=== PATIENT | female | born 1950 | race Caucasian/White ===

== ENCOUNTER 2016-07-11 18:57 | Emergency (ER) | payer BC ==
[~2016-07-11] VITALS: Ht 175.3 cm; Wt 91.0 kg
[~2016-07-11 18:57] MED LIST: ATOR-22 PO; ESCI1TAB6 PO; LEVO75TA PO; LORA-741 PO; MECL1TAB42 PO; OMEP20CA9 PO; RIZA1TAB10 PO; TELM40TA PO; ZNTT/150 PO
[2016-07-11 19:04] VITALS: TEMP 36.6; Ht 175.3 cm; Wt 91.0 kg
[2016-07-11] MEDS ORDERED: ROSU10TA24 PO (19:43)
--- NOTE | 2016-07-11 20:03 | EMERGENCY ROOM VISIT NOTE ---
ED Visit Note First contact with patient: 19:11 This Patient was discussed with the physician sales assistants and salespersons, Harpreet Cam PA-C. The pertinent historical and physical exam findings were confirmed. I agree with the studies ordered and with the interpretations of these studies. I agree with the disposition and care plan.
--- NOTE | 2016-07-11 20:19 | EMERGENCY ROOM VISIT NOTE ---
History First contact with patient: 19:11 Chief Complaint: FALL Stated Complaint: FELL,HURT LEG History of Present Illness The patient is a 65 year old female who presents to the Emergency Room via private vehicle accompanied by and daughter with complaints of "fell, her leg". Patient states that earlier today while at her grandson's birthday alliance party, at approximately 5:30 PM she was carrying a 2-year-old child and went to step backwards and believes she tripped over a grandson who would walk behind her and she began to fall backwards twisting her right knee and heard a snap from the knee as she fell to the ground. She points to the right knee as a location of the pain. She rates the knee pain as a 10/10 when trying to walk. The pain is a 0/10 at rest. She denies any prior injuries or knee pains. She denies any loss of consciousness or striking her head. She denies any other injuries from today's fall. Review of Systems A complete 6-point Review of Systems was discussed with the patient, with pertinent positives and negatives listed in the History of Present Illness. All remaining Review of Systems questions can be considered negative unless otherwise specified. Past Medical/Surgical History High blood pressure, stomach problems, hysterectomy 1979. Family History Heart disease, blood pressure. Social History Smoking Status: Former Smoker Alcohol Use: none Drug Use: none Marital Status: Occupation Status: employed Social History: Patient was at home with spouse. She denies alcohol or tobacco use. Current/Historical Medications Scheduled Levothyroxine Sodium (Synthroid), 75 MCG PO DAILY Rosuvastatin Calcium (Rosuvastatin Calcium), 10 MG PO QAM Telmisartan (Micardis), 40 MG PO DAILY Scheduled PRN Lorazepam (Ativan), 0.5-1 MG PO Q6H PRN for Anxiety Meclizine Hcl (Meclizine Hcl), 25 MG PO TID PRN for Dizziness or Vertigo Omeprazole (Prilosec), 20-40 MG PO DAILY PRN for Dyspepsia Oxycodone Immediate Rel Tab (Roxicodone Ir), 1-2 TAB PO Q4H PRN for Severe Pain Allergies Coded Allergies: Acetaminophen (Verified Allergy, Mild, Rash, 07/11/16) Hydrocodone (Verified Allergy, Mild, Rash, 07/11/16) Physical Exam Vital Signs Date Time Temp Pulse Resp B/P Pulse Ox O2 Delivery O2 Flow Rate FiO2 07/11/16 22:25 88 18 143/91 97 07/11/16 19:04 36.6 95 18 171/95 98 Room Air Physical Exam VITAL SIGNS - Vital signs and nursing notes were reviewed. Patient is afebrile , slightly hypertensive at 171/95, non-tachycardic, and is saturating well on room air 98%. GENERAL -65-year-old female stated age and in noticeable discomfort throughout the exam. MUSCULOSKELETAL -right knee with erythema, edema, and no ecchymosis. Exquisite tenderness to palpation appreciated over the posterior aspect of the right knee. Decreased strength appreciated right knee secondary to patient discomfort. No posterior sag sign. RANGE OF MOTION: Limited Flexion with limited Extension. Suspected anterior cruciate ligament tear secondary to location of tenderness. VARUS/VALGUS STRESS: No laxity noted.. NEUROLOGIC/VASCULAR - Neurovascularly intact distally with +3/5 dorsalis pedis pulses palpated bilaterally. Normal sensation to light and sharp touch appreciated distally. No neurovascular deficits. Medical Decision & Procedures ER Provider Diagnostic Interpretation: RIGHT KNEE 3 VIEWS HISTORY: Right knee pain s/p fall Right COMPARISON: None. FINDINGS: There is no fracture or dislocation. Mild tricompartmental osteoarthritis. There is a moderate lipohemarthrosis. IMPRESSION: Moderate joint effusion which appears to represent a lipohemarthrosis. No fractures identified. However, a lipohemarthrosis favors an occult fracture. Recommend dedicated CT of the right knee for further evaluation. Electronically signed by: Afshin Hummel M.D. 07/11/2016 8:18 PM Dictated Date/Time: 07/11/2016 8:[address] DOSE: 2039.00 mGy.cm HISTORY: Right knee injury. R/o occult fx. Right TECHNIQUE: Multiaxial CT images of the right knee were performed and reformatted in the sagittal and coronal plane without the use of contrast. COMPARISON: Right knee 07/11/2016. FINDINGS: There is again noted a moderate lipohemarthrosis. Mild cartilage space narrowing within the medial compartment of the knee. There is a fracture through the posterior aspect of the lateral tibial plateau. This demonstrates up to 1 mm of depression. There is a small slightly displaced fracture at the posterior lip. The total depressed fracture area measures 2.5 x 1.3 cm. There is suggestion of soft tissue edema at the ACL with a small bony fragment near the femoral attachment. This may represent an ACL tear. The distal femur, patella, and fibula are intact. Small popliteal cyst. IMPRESSION: 1. Lateral tibial plateau fracture as described up which demonstrates up to 1 mm of depression. 2. Moderate lipohemarthrosis. 3. Suspect an ACL injury/tear. Follow-up outpatient MRI can be performed for confirmation. Electronically signed by: Afshin Hummel M.D. 07/11/2016 9:09 PM Dictated Date/Time: 07/11/2016 9:03 PM Medications Administered Medications (Trade) Dose Ordered Sig/Arelis Route Start Time Stop Time Status Last Admin Dose Admin Oxycodone HCl (Roxicodone Immediate Rel 5MG Home Pack) 1 homepack UD STAT PO 07/11/16 22:11 07/11/16 22:12 DC 07/11/16 22:17 1 HOMEPACK Medical Decision Patient was seen and evaluated as above. After obtaining a thorough history and physical examination radiographs of the right knee were obtained secondary to subjective and objective examination findings. There was concern for fracture of the knee. Results of the radial graph as above. I agree with radiologist findings. Due to the questionable occult fracture dedicated CT was obtained. Patient did not want anything for pain. She was given ice pack. CT did reveal a tibial plateau fracture with potential anterior cruciate ligament tear. I did discuss the case with my attending as well as called the on-call orthopedic surgeon at 9:43 PM. I spoke with Dr. Neal, and discussed the case. It was decided patient could be fitted with a knee immobilizer, made nonweightbearing and follow up with his office in the outpatient setting. Patient was fitted with a knee immobilizer and crutches. She seemed happy with this. She was given a home pack for OxyIR 5 mg tablets as well as a prescription for her pharmacy which was written by my attending after verifying no red flag [place] drug monitoring system. The patient noted that she did have hydrocodone allergy therefore this was a voided and I did caution her that oxycodone may cause a reaction as well. She indicated she had never taken this before, however she was open to trying and notes that if she develops a rash she will stop it and should not be a problem. She was given the number for the orthopedic surgeon. She was repeatedly instructed to remain nonweightbearing. She was educated on worrisome symptoms in which to return. She had questions answered prior to discharge and was discharged home in good condition with her father and daughter. In the evaluation and treatment of this patient, the following differential diagnoses were considered: Patellar Fracture, Tibial Plateau Fracture, Distal Femur Fracture, ACL Injury, PCL Injury, Collateral Ligament Injury, Pes Anserine Bursitis, Maisonneuve Fracture. Impression Primary Impression: Fall Additional Impressions: Right knee pain, Tibial plateau fracture, right, Injury of anterior cruciate ligament, acute Departure Information Dispostion Home / Self-Care Condition GOOD Prescriptions Oxycodone Immediate Rel Tab (ROXICODONE IR) 5 Mg Tab 1-2 TAB PO Q4H Y for Severe Pain, #24 TAB Prov: Reuben Miguel, 07/11/16 Referrals Steven Monroe M.D. (PCP) Steven Neal M.D. Patient Instructions A Signature Page, My [facility] Additional Instructions You have been treated in the Emergency Department for Knee Pain. You have been prescribed Oxy IR to be used for pain control. This is a narcotic medication. You cannot drive or consume alcohol while on this medicine. This medicine should only be used for pain that cannot be controlled with over-the- counter pain medicines. As we discussed you're never had this pain medication before and it is recommended that if you develop any reaction such as hives or difficulty breathing that you return to the emergency department immediately after cessation of the medication. Please consider taking an cfhz-cme-jfafite stool softener with this to help prevent constipation. For pain control, you can use the following tqfj-yxy-gszhkoa medicines (if >12 yo): - Regular strength (325mg/tab) Tylenol (acetaminophen) 2 tabs every 4-6 hours as needed. Do not exceed 12 tablets in a 24 hour period. Avoid taking more than 4 grams (4000 mg) of Tylenol per day. This includes any other sources of acetaminophen you may take on a regular basis. - Regular strength (200 mg/tab) Advil (ibuprofen) 1-2 tabs every 4-6 hours as needed. Do not exceed a dose of 3200 mg per day. If this is a recent injury (<24 hrs), ice can be applied to the area of pain for the first 3 days to help decrease pain and inflammation. Ice massages can be performed by freezing water in a paper cup, peeling back the cup to expose the ice and then massaging over the affected area. You have been provided the number for an Orthopaedic Surgeon. You should call this number as soon as possible to establish a follow-up visit from today's Emergency Department visit. Keep the knee brace in place until cleared by Orthopedics. Use the crutches you have been provided to keep ALL weight off of the knee until seen and evaluated by orthopedics. Return to the Emergency Department if your current symptoms worsen despite treatment course outlined above. Please return to the emergency department with any new/concerning symptoms.
--- NOTE | 2016-07-11 21:11 | DIAGNOSTIC IMAGING REPORT ---
RIGHT KNEE CT CT DOSE: 2039.00 mGy.cm HISTORY: Right knee injury. R/o occult fx. Right TECHNIQUE: Multiaxial CT images of the right knee were performed and reformatted in the sagittal and coronal plane without the use of contrast. COMPARISON: Right knee 07/11/2016. FINDINGS: There is again noted a moderate lipohemarthrosis. Mild cartilage space narrowing within the medial compartment of the knee. There is a fracture through the posterior aspect of the lateral tibial plateau. This demonstrates up to 1 mm of depression. There is a small slightly displaced fracture at the posterior lip. The total depressed fracture area measures 2.5 x 1.3 cm. There is suggestion of soft tissue edema at the ACL with a small bony fragment near the femoral attachment. This may represent an ACL tear. The distal femur, patella, and fibula are intact. Small popliteal cyst. IMPRESSION: 1. Lateral tibial plateau fracture as described up which demonstrates up to 1 mm of depression. 2. Moderate lipohemarthrosis. 3. Suspect an ACL injury/tear. Follow-up outpatient MRI can be performed for confirmation. Electronically signed by: Afshin Hummel M.D. 07/11/2016 9:09 PM Dictated Date/Time: 07/11/2016 9:03 PM
[2016-07-11] MEDS ORDERED: OXYC1TAB3 PO (21:32)
[2016-07-11] MEDS ORDERED: OXYCODONE IR HOME PACK PO STA (22:11)
[2016-07-11 22:25] VITALS: BP 143/91; PULSE 88; O2SAT 97
== END 2016-07-11 22:26 | disposition home or self-care (01) ==
LOC: C.EDB 18:58 → C.EDD 22:26
DX: S82.141A Displaced bicondylar fracture of right tibia, initial encounter for closed fracture (principal); S89.81XA Other specified injuries of right lower leg, initial encounter; W03.XXXA Other fall on same level due to collision with another person, initial encounter; Y93.01 Activity, walking, marching and hiking; Y99.8 Other external cause status; Y92.89 Other specified places as the place of occurrence of the external cause; Z87.891 Personal history of nicotine dependence

== ENCOUNTER → 2016-10-21 | Outpatient (CLI) | payer BC ==
[~2016-10-21] MED LIST changes: -ATOR-22 PO; -ESCI1TAB6 PO; +OXYC1TAB3 PO; -RIZA1TAB10 PO; +ROSU10TA24 PO; -ZNTT/150 PO
--- NOTE | 2016-10-21 15:28 | DIAGNOSTIC IMAGING REPORT ---
ULTRASOUND RIGHT LOWER EXTREMITY VENOUS CLINICAL HISTORY: Right leg swelling. COMPARISON STUDY: No priors. TECHNIQUE: Real-time, grayscale, and color Doppler sonography of the deep veins of the right lower extremity was performed from the inguinal crease to the calf. Compression and augmentation were utilized. FINDINGS: There is deep venous thrombosis identified in the calf within the peroneal veins. The remaining calf vessels are clear. There is no sonographic evidence of above knee deep venous thrombosis identified in the right lower extremity. The common femoral, superficial femoral, and popliteal veins are patent and normally compressible. The greater saphenous vein and the profunda femoris vein at the junction with the common femoral vein are clear. A small popliteal cyst measures 2.8 x 1.0 x 1.4 cm. IMPRESSION: 1. Deep venous thrombosis is identified in the right calf within the peroneal veins. 2. No above knee deep venous thrombosis is identified in the right lower extremity. 3. Popliteal cyst. Electronically signed by: Jayson Nj M.D. 10/21/2016 3:27 PM Dictated Date/Time: 10/21/2016 3:25 PM
== END | disposition home or self-care (01) ==
LOC: C.ULTRBC 14:49
PROVIDERS: ATTEND Physician Assistant Medical
DX: R60.0 Localized edema (principal); I82.491 Acute embolism and thrombosis of other specified deep vein of right lower extremity

== ENCOUNTER → 2016-11-19 | Outpatient (CLI) | payer BC ==
--- NOTE | 2016-11-19 14:18 | DIAGNOSTIC IMAGING REPORT ---
RIGHT LOWER EXTREMITY VENOUS DOPPLER HISTORY: I82.409 DVT (deep venous thrombosis)M25.569 Knee painR60.0 Leg e Right COMPARISON STUDY: Right leg venous Doppler 10/21/2016. FINDINGS: There is deep venous thrombosis identified in the calf within the peroneal veins, unchanged. The remaining calf vessels are clear. There is no sonographic evidence of above knee deep venous thrombosis identified in the right lower extremity. The common femoral, superficial femoral, and popliteal veins are patent and normally compressible. The greater saphenous vein is patent. A small popliteal cyst. IMPRESSION: 1. No change in the deep venous thrombosis is identified in the right calf within the peroneal veins. 2. No above knee deep venous thrombosis is identified in the right lower extremity. 3. Popliteal cyst. Electronically signed by: Afshin Hummel M.D. 11/19/2016 2:16 PM Dictated Date/Time: 11/19/2016 2:14 PM
--- NOTE | 2016-11-19 14:22 | DIAGNOSTIC IMAGING REPORT ---
RIGHT KNEE 2 VIEWS HISTORY: I82.409 DVT (deep venous thrombosis)M25.569 Knee painR60.0 Leg e Right COMPARISON: Right knee 07/11/2016. FINDINGS: There is an old small nonunited fracture within the posterior lip of the lateral tibial plateau. No significant displacement. No acute fractures identified within the right knee. No dislocation. No significant knee effusion. Soft tissues are unremarkable. No radiopaque foreign bodies. IMPRESSION: There is an old small nonunited fracture within the posterior lip of the lateral tibial plateau. No acute fractures. No effusion. Electronically signed by: Afshin Hummel M.D. 11/19/2016 2:21 PM Dictated Date/Time: 11/19/2016 2:17 PM
== END | disposition home or self-care (01) ==
LOC: C.ULTRBC 13:29
PROVIDERS: ATTEND Physician Assistant Medical
DX: I82.409 Acute embolism and thrombosis of unspecified deep veins of unspecified lower extremity (principal); M25.561 Pain in right knee; R60.0 Localized edema

== ENCOUNTER → 2016-12-22 | Outpatient (CLI) | payer BC ==
--- NOTE | 2016-12-22 08:06 | DIAGNOSTIC IMAGING REPORT ---
BILATERAL LOWER EXTREMITY VENOUS DOPPLER HISTORY: Pain. Edema. HX DVT; EDEMA COMPARISON STUDY: 11/19/2016 FINDINGS: Chronic thrombophlebitis of the right catheter. This involves one of the 2. Peroneal veins. Flow is perhaps slightly improved. There is no evidence for progressive disease. All remaining venous structures the right leg as well as the entirety of the left leg are unremarkable. IMPRESSION: Chronic thrombophlebitis right lower leg moderately improved from the prior exam. No new or interval process. Electronically signed by: Jorge Alberto Singh M.D. 12/22/2016 8:04 AM Dictated Date/Time: 12/22/2016 8:02 AM
== END | disposition home or self-care (01) ==
LOC: C.ULTRBC 07:20
PROVIDERS: ATTEND Internal Medicine
DX: I82.409 Acute embolism and thrombosis of unspecified deep veins of unspecified lower extremity (principal); R60.0 Localized edema

== ENCOUNTER → 2016-12-24 | Outpatient (CLI) | payer BC ==
--- NOTE | 2016-12-25 08:00 | MAMMOGRAPHY REPORT ---
BILATERAL DIGITAL SCREENING MAMMOGRAM WITH CAD: 12/24/2016 CLINICAL HISTORY: Routine screening. Patient has no complaints. TECHNIQUE: Current study was also evaluated with a Computer Aided Detection (CAD) system. Bilateral CC and MLO views were obtained. COMPARISON: Comparison is made to exams dated: 11/19/2015 mammogram, 07/04/2015 ultrasound, 5 mammogram, 10/18/2014 mammogram, 02/02/2013 mammogram, and 02/02/2013 ultrasound - [facility]. BREAST COMPOSITION: There are scattered areas of fibroglandular density in both breasts. FINDINGS: No suspicious masses, calcifications, or areas of architectural distortion are noted in ei ther breast. There has been no significant interval change compared to prior exams. Linear scar rancho ers denote scars on the right anterior breast. Small circumscribed benign-appearing mass within the right breast at approximately 12:00 is stable. IMPRESSION: ACR BI-RADS CATEGORY 2: BENIGN There is no mammographic evidence of malignancy. A 1 year screening mammogram is recommended. The pa tient will receive written notification of the results. Approximately 10% of breast cancers are not detected with mammography. A negative mammographic report should not delay biopsy if a clinically suggestive mass is present. Isabel Valadez M.D. ah/:12/24/2016 15:50:17 Dag Coater: Margaret TROTTERR, M, [facility] letter sent: Normal 1/2 BI-RADS Code: ACR BI-RADS Category 2: Benign
== END | disposition home or self-care (01) ==
LOC: C.MAMM 14:21
PROVIDERS: ATTEND Obstetrics & Gynecology
DX: Z12.31 Encounter for screening mammogram for malignant neoplasm of breast (principal)

== ENCOUNTER → 2017-01-11 | Outpatient (CLI) | payer BC ==
--- NOTE | 2017-01-11 14:56 | DIAGNOSTIC IMAGING REPORT ---
RIGHT LOWER EXTREMITY VENOUS DOPPLER CLINICAL HISTORY: Deep venous thrombus. COMPARISON STUDY: Right lower extremity venous Doppler Nov 19 2016. TECHNIQUE: Sonography of the deep venous system of the right lower extremity was performed. Compression and augmentation were evaluated. FINDINGS: The common femoral, superficial femoral and popliteal veins were compressible. Augmentation was normal. There is minimal wall thickening of the right peroneal vein which suggests chronic thrombus. The amount of thrombus has diminished since exam of November 19, 2016. There is a small right popliteal cyst. IMPRESSION: 1. No evidence of acute deep venous thrombus within the right lower extremity. 2. Minimal chronic thrombus within the right peroneal vein which has improved since exam of November 19, 2016. Electronically signed by: Brian Barton M.D. 01/11/2017 2:54 PM Dictated Date/Time: 01/11/2017 2:53 PM
== END | disposition home or self-care (01) ==
LOC: C.ULTRBC 14:12
PROVIDERS: ATTEND Internal Medicine
DX: I82.591 Chronic embolism and thrombosis of other specified deep vein of right lower extremity (principal)

== ENCOUNTER → 2017-02-04 | Outpatient (CLI) | payer BC ==
[~2017-02-04] MED LIST changes: -OXYC1TAB3 PO
--- NOTE | 2017-02-04 12:17 | DIAGNOSTIC IMAGING REPORT ---
ULTRASOUND RIGHT LOWER EXTREMITY VENOUS CLINICAL HISTORY: Follow-up deep venous thrombosis. COMPARISON STUDY: Right lower extremity venous ultrasound dated 01/11/2017. TECHNIQUE: Real-time, grayscale, and color Doppler sonography of the deep veins of the right lower extremity was performed from the inguinal crease to the calf. Compression and augmentation were utilized. FINDINGS: There is age indeterminant and likely chronic deep venous thrombosis identified in the calf within the peroneal veins. The remaining calf vessels are clear. There is no sonographic evidence of above knee deep venous thrombosis identified in the right lower extremity. The common femoral, superficial femoral, and popliteal veins are patent and normally compressible. The greater saphenous vein and the profunda femoris vein at the junction with the common femoral vein are clear. IMPRESSION: 1. Presumably chronic deep venous thrombosis is again seen in the right calf within the peroneal veins. This is similar to the 01/11/2017 examination. 2. No above knee deep venous thrombosis is identified in the right lower extremity. Electronically signed by: Jayson Nj M.D. 02/04/2017 12:16 PM Dictated Date/Time: 02/04/2017 12:14 PM
== END | disposition home or self-care (01) ==
LOC: C.ULTRBC 10:57
PROVIDERS: ATTEND Internal Medicine
DX: I82.409 Acute embolism and thrombosis of unspecified deep veins of unspecified lower extremity (principal)

== ENCOUNTER → 2017-02-18 | Outpatient (CLI) | payer BC ==
--- NOTE | 2017-02-18 11:05 | DIAGNOSTIC IMAGING REPORT ---
RIGHT LOWER EXTREMITY VENOUS DOPPLER HISTORY: I82.409 DVT (deep venous thrombosis) COMPARISON STUDY: Right leg venous Doppler 02/04/2017. FINDINGS: No change in the thrombosed right peroneal veins. Therefore, this is considered to be chronic. The right common femoral, superficial femoral, popliteal, anterior tibial, posterior tibial veins appear patent. IMPRESSION: No acute DVT within the right lower extremity. No change in the presumed chronic thrombus within the right peroneal veins. Electronically signed by: Afshin Hummel M.D. 02/18/2017 11:04 AM Dictated Date/Time: 02/18/2017 11:02 AM
== END | disposition home or self-care (01) ==
LOC: C.ULTRBC 10:22
PROVIDERS: ATTEND Internal Medicine
DX: I82.409 Acute embolism and thrombosis of unspecified deep veins of unspecified lower extremity (principal); R60.0 Localized edema

== ENCOUNTER → 2017-06-15 | Outpatient (CLI) | payer BC ==
--- NOTE | 2017-06-15 15:14 | DIAGNOSTIC IMAGING REPORT ---
R VENOUS DOPP LOWER EXT UNILAT HISTORY: 66 years-old Female RT LEG PAIN acute right leg pain COMPARISON: Duplex venous Doppler study 02/18/2017, 02/04/2017 TECHNIQUE: Multiple real-time sonographic images of the right lower extremity deep venous structures were obtained assessing grayscale appearance, color and spectral flow FINDINGS: No change in the chronic thrombosed right peroneal veins. The right common femoral, superficial femoral, profunda femoris, popliteal, posterior tibial, and anterior tibial appear patent. IMPRESSION: 1. No acute deep venous thrombosis of the right lower extremity. 2. Unchanged appearance of the chronic thrombosed right peroneal veins. The above report was generated using voice recognition software. It may contain grammatical, syntax or spelling errors. Electronically signed by: Brent Mosher M.D. 06/15/2017 3:12 PM Dictated Date/Time: 06/15/2017 3:10 PM
== END | disposition home or self-care (01) ==
LOC: C.ULTRBC 14:32
PROVIDERS: ATTEND Internal Medicine
DX: M54.16 Radiculopathy, lumbar region (principal); M79.604 Pain in right leg; M79.671 Pain in right foot; I82.811 Embolism and thrombosis of superficial veins of right lower extremity

== ENCOUNTER → 2017-07-22 | Outpatient (CLI) | payer BC ==
[~2017-07-22] MED LIST changes: -ROSU10TA24 PO; +ROSU10TA35 PO
[2017-07-22 16:49] LABS: BASO % 0.8 %; BASO ABS # 0.05 K/uL (0-0.2); EOS % 1.5 %; HEMATOCRIT 44.7 % (37-47); IG# 0.01 K/uL (0.00-0.02); LYMPH % 33.9 %; LYMPH ABS # 2.21 K/uL (1.2-3.4); MEAN CELL VOLUME 87.3 fL (80-100); MEAN CORPUSCULAR HEMOGLOBIN 29.3 pg (25-34); MEAN CORPUSCULAR HGB CONC 33.6 g/dl (32-36); MEAN PLATELET VOLUME 12.1 fL (7.4-10.4); MONO % 10.4 %; MONO ABS # 0.68 K/uL (0.11-0.59); NEUT % 53.2 %; NEUT ABS # 3.46 K/uL (1.4-6.5); PLATELET COUNT 276 K/uL (130-400); RED CELL DISTRIBUTION WIDTH CV 13.3 % (11.5-14.5); RED CELL DISTRIBUTION WIDTH SD 42.8 fL (36.4-46.3); WHITE BLOOD COUNT 6.51 K/uL (4.8-10.8)
[2017-07-22 17:08] LABS: ALBUMIN 3.8 gm/dl (3.4-5.0); ALKALINE PHOSPHATASE 97 U/L (45-117); ALT/SGPT 27 U/L (12-78); AST/SGOT 13 U/L (15-37); BLOOD UREA NITROGEN 9 mg/dl (7-18); CALCIUM 8.9 mg/dl (8.5-10.1); CARBON DIOXIDE 28 mmol/L (21-32); CREATININE 0.92 mg/dl (0.60-1.20); GLUCOSE 86 mg/dl (70-99); LIPASE 218 U/L (73-393); POTASSIUM 3.6 mmol/L (3.5-5.1); SODIUM 138 mmol/L (136-145); TOTAL PROTEIN 7.9 gm/dl (6.4-8.2)
== END | disposition home or self-care (01) ==
LOC: C.LABBC 14:27
PROVIDERS: ATTEND Physician Assistant Medical
DX: R10.9 Unspecified abdominal pain (principal); R14.0 Abdominal distension (gaseous); R11.0 Nausea

== ENCOUNTER → 2017-07-26 | Outpatient (CLI) | payer BC ==
--- NOTE | 2017-07-26 09:30 | DIAGNOSTIC IMAGING REPORT ---
ABDOMEN COMPLETE (US) CLINICAL HISTORY: Abdominal pain and nausea. COMPARISON STUDY: Abdominal ultrasound August 30, 2014. FINDINGS: Liver morphology is normal. Several hepatic cysts measure up to 1.9 cm. The gallbladder is normal. There are no gallstones. The anchors is within normal limits although the tail is partially obscured. There is no biliary ductal dilatation. The size of the spleen is normal. The right kidney measures 10.2 cm and the left measures 11.7 cm. There is no hydronephrosis. No calculi or masses are identified by sonography. The caliber of the abdominal aorta is normal. Visualized portions of the IVC are patent. IMPRESSION: 1. No gallstones or biliary ductal dilatation. 2. Several hepatic cysts. 3. No hydronephrosis. Electronically signed by: Brian Barton M.D. 07/26/2017 9:28 AM Dictated Date/Time: 07/26/2017 9:27 AM
== END | disposition home or self-care (01) ==
LOC: C.ULTRBC 07:57
PROVIDERS: ATTEND Physician Assistant Medical
DX: K76.89 Other specified diseases of liver (principal); R11.0 Nausea

== ENCOUNTER → 2017-08-02 | Outpatient (CLI) | payer BC ==
[~2017-08-02] MED LIST changes: +ATOR-22 PO; +PRLSR20 PO; +SINCALIDE INJ 1.9 MCG in SODIUM CHLORIDE 0.9% 100ML 100 ML IV ONE
--- NOTE | 2017-08-02 12:28 | DIAGNOSTIC IMAGING REPORT ---
NUCLEAR HEPATOBILIARY SCAN WITH EJECTION FRACTION IMAGING CLINICAL HISTORY: Nausea. Right upper quadrant abdominal pain. COMPARISON STUDY: Abdominal ultrasound dated 07/26/2017. TECHNIQUE: Dynamic images of the liver and anterior abdomen were obtained every 5 minutes for a total of 60 minutes following the IV administration of 5.7mCi of technetium 99m Choletec. 1.9 mcg of sincalide was then injected with additional images acquired every 5 minutes for 45 minutes to calculate the gallbladder ejection fraction. FINDINGS: The hepatobiliary scan shows prompt and homogeneous hepatic uptake. There is visualized activity within the intra and extrahepatic biliary tree at 10 minutes, and within the gallbladder at 15 minutes. There is normal biliary to bowel transit, with small bowel visualized by 35 minutes. On the sincalide imaging, the gallbladder ejection fraction was measured at 95%. IMPRESSION: 1. Unremarkable nuclear hepatobiliary scan. There is no scintigraphic evidence of cholecystitis. 2. The gallbladder ejection fraction measured 95% which is normal. Electronically signed by: Jayson Nj M.D. 08/02/2017 12:27 PM Dictated Date/Time: 08/02/2017 12:26 PM
== END | disposition home or self-care (01) ==
LOC: C.NUCL 10:06
PROVIDERS: ATTEND Physician Assistant Medical
DX: R11.0 Nausea (principal); R10.9 Unspecified abdominal pain

== ENCOUNTER 2017-09-20 06:49 | Emergency (ER) | payer BC ==
[~2017-09-20] VITALS: Ht 175.3 cm; Wt 98.2 kg
[~2017-09-20 06:49] MED LIST changes: -OMEP20CA9 PO; -ROSU10TA35 PO; -SINCALIDE INJ 1.9 MCG in SODIUM CHLORIDE 0.9% 100ML 100 ML IV ONE
[2017-09-20 06:53] VITALS: TEMP 36.6; Ht 175.3 cm; Wt 98.2 kg
[2017-09-20 07:14] VITALS: O2SAT 98
[2017-09-20 07:41] LABS: BASO % 0.9 %; BASO ABS # 0.05 K/uL (0-0.2); EOS % 2.2 %; EOS ABS # 0.12 K/uL (0-0.5); HEMATOCRIT 41.2 % (37-47); HEMOGLOBIN 13.8 g/dL (12.0-16.0); IG# 0.01 K/uL (0.00-0.02); LYMPH % 31.5 %; LYMPH ABS # 1.68 K/uL (1.2-3.4); MEAN CELL VOLUME 85.8 fL (80-100); MEAN CORPUSCULAR HEMOGLOBIN 28.8 pg (25-34); MEAN CORPUSCULAR HGB CONC 33.5 g/dl (32-36); MEAN PLATELET VOLUME 11.3 fL (7.4-10.4); MONO % 8.4 %; MONO ABS # 0.45 K/uL (0.11-0.59); NEUT % 56.8 %; NEUT ABS # 3.03 K/uL (1.4-6.5); PLATELET COUNT 256 K/uL (130-400); RED CELL DISTRIBUTION WIDTH CV 13.8 % (11.5-14.5); RED CELL DISTRIBUTION WIDTH SD 43.4 fL (36.4-46.3); WHITE BLOOD COUNT 5.34 K/uL (4.8-10.8)
--- NOTE | 2017-09-20 07:50 | DIAGNOSTIC IMAGING REPORT ---
CHEST ONE VIEW PORTABLE CLINICAL HISTORY: 67 years-old Female presenting with Evaluate Fever/Sepsis. TECHNIQUE: Portable upright AP view of the chest was obtained. COMPARISON: 10/22/2015. FINDINGS: Atherosclerosis of the aortic arch. Cardiac silhouette normal in size. Minimal linear opacities at the lung bases unchanged from prior, likely scarring. Lungs and pleural spaces otherwise clear. Osseous structures normal. Upper abdomen normal. IMPRESSION: 1. No acute cardiopulmonary disease. Electronically signed by: Steven Gerardo M.D. 09/20/2017 7:49 AM Dictated Date/Time: 09/20/2017 7:48 AM
[2017-09-20 07:51] LABS: PTT PATIENT 22.7 SECONDS (21.0-31.0)
[2017-09-20 08:04] LABS: ALBUMIN 3.6 gm/dl (3.4-5.0); ALT/SGPT 25 U/L (12-78); BLOOD UREA NITROGEN 9 mg/dl (7-18); CALCIUM 8.9 mg/dl (8.5-10.1); CARBON DIOXIDE 26 mmol/L (21-32); CREATININE 0.92 mg/dl (0.60-1.20); GLUCOSE 102 mg/dl (70-99); LIPASE 178 U/L (73-393); POTASSIUM 3.6 mmol/L (3.5-5.1); SODIUM 142 mmol/L (136-145)
[2017-09-20 08:10] LABS: ALKALINE PHOSPHATASE 101 U/L (45-117); AST/SGOT 14 U/L (15-37); CKMB 0.5 ng/ml (0.5-3.6); TOTAL PROTEIN 7.7 gm/dl (6.4-8.2)
--- NOTE | 2017-09-20 09:03 | EMERGENCY ROOM VISIT NOTE ---
History Report prepared by Jeimy: Owen Trejo Under the Supervision of: Dr. Akin Mayes D.O. First contact with patient: 07:00 Chief Complaint: RESPIRATORY PROBLEMS Stated Complaint: DIFFICULTY BREATHING Nursing Triage Summary: pt reports starting on Fri with sinus drainage and feels like my throat is clogged with phlegm. increased exertional sob . History of Present Illness The patient is a 67 year old female who presents to the Emergency Room with complaints of intermittent shortness of breath beginning three days ago. She also complains of "tightness" down the sides of her neck and chest pressure. She states "it feels like my throat is clogged". The patient's symptoms improved two days ago, but returned and worsened yesterday. She has shortness of breath with exertion, but this has been present and unchanged for several years. She notes that she has a history of chronic post nasal drip. The patient states that everyone at work has been sick recently. She denies sore throat. Source of History: patient Onset: Three days ago Quality: other (shortness of breath) Timing: intermittent Modifying Factors (Worsening): exertion Associated Symptoms: + chest pain (pressure), No sorethroat Note: The patient also complains of "tightness" down the sides of her neck. Review of Systems See HPI for pertinent positives & negatives. A total of 10 systems reviewed and were otherwise negative. Past Medical & Surgical Medical Problems: (1) Acute electrocardiogram changes (2) Chest pain (3) HTN (hypertension) (4) Hypothyroid (5) Meniere's disease (6) Pre-syncope Family History No pertinent family history stated. Social History Smoking Status: Never Smoker Alcohol Use: none Drug Use: none Marital Status: Occupation Status: employed Current/Historical Medications Scheduled Atorvastatin (Lipitor), 20 MG PO QAM Levothyroxine Sodium (Synthroid), 75 MCG PO QAM Omeprazole (Prilosec), 20 MG PO DAILY AFTERNOON Telmisartan (Micardis), 40 MG PO QAM Scheduled PRN Lorazepam (Ativan), 0.5-1 MG PO Q6H PRN for Anxiety Meclizine Hcl (Meclizine Hcl), 25 MG PO TID PRN for Dizziness or Vertigo Allergies Coded Allergies: Hydrocodone (Verified Allergy, Mild, Rash, 09/20/17) Nickel (Verified Allergy, Unknown, RASH, 09/20/17) Physical Exam Vital Signs Date Time Temp Pulse Resp B/P (MAP) Pulse Ox O2 Delivery O2 Flow Rate FiO2 09/20/17 08:00 69 16 152/86 98 Room Air 09/20/17 07:45 77 16 157/93 99 Room Air 09/20/17 07:20 79 09/20/17 07:14 98 Room Air 09/20/17 06:53 36.6 79 20 193/99 98 Room Air Physical Exam CONSTITUTIONAL/VITAL SIGNS: Reviewed / noted above. GENERAL: Non-toxic in appearance. INTEGUMENTARY: Warm, dry, and [place]. HEAD: Normocephalic. EYES: without scleral icterus or trauma. ENT/OROPHARYNX: clear and moist. Mild erythema to the soft palate in the area of the uvula. LYMPHADENOPATHY/NECK: Is supple without lymphadenopathy or meningismus. RESPIRATORY: Lungs clear and equal. CARDIOVASCULAR: Regular rate and rhythm. GI/ABDOMEN: Soft and nontender. No organomegaly or pulsatile mass. No rebound or guarding. Normal bowel sounds. EXTREMITIES: Warm and well perfused. BACK: No CVA tenderness. NEUROLOGICAL: Intact without focal deficits. PSYCHIATRIC: normal affect. MUSCULOSKELETAL: Normally developed with good muscle tone. Medical Decision & Procedures ER Provider Diagnostic Interpretation: Radiology results as stated below per my review and radiologist interpretation: CHEST ONE VIEW PORTABLE FINDINGS: Atherosclerosis of the aortic arch. Cardiac silhouette normal in size. Minimal linear opacities at the lung bases unchanged from prior, likely scarring. Lungs and pleural spaces otherwise clear. Osseous structures normal. Upper abdomen normal. IMPRESSION: 1. No acute cardiopulmonary disease. Electronically signed by: Steven Gerardo M.D. 09/20/2017 7:49 AM Laboratory Results 09/20/17 07:20 Red Blood Count 4.80, Mean Corpuscular Volume 85.8, Mean Corpuscular Hemoglobin 28.8, Mean Corpuscular Hemoglobin Concent 33.5, Mean Platelet Volume 11.3, Neutrophils (%) (Auto) 56.8, Lymphocytes (%) (Auto) 31.5, Monocytes (%) (Auto) 8.4, Eosinophils (%) (Auto) 2.2, Basophils (%) (Auto) 0.9, Neutrophils # (Auto) 3.03, Lymphocytes # (Auto) 1.68, Monocytes # (Auto) 0.45, Eosinophils # (Auto) 0.12, Basophils # (Auto) 0.05 09/20/17 07:20 Test 09/20/17 07:20 09/20/17 07:55 White Blood Count 5.34 K/uL (4.8-10.8) Red Blood Count 4.80 M/uL (4.2-5.4) Hemoglobin 13.8 g/dL (12.0-16.0) Hematocrit 41.2 % (37-47) Mean Corpuscular Volume 85.8 fL (80-100) Mean Corpuscular Hemoglobin 28.8 pg (25-34) Mean Corpuscular Hemoglobin Concent 33.5 g/dl (32-36) Platelet Count 256 K/uL (130-400) Mean Platelet Volume 11.3 fL (7.4-10.4) Neutrophils (%) (Auto) 56.8 % Lymphocytes (%) (Auto) 31.5 % Monocytes (%) (Auto) 8.4 % Eosinophils (%) (Auto) 2.2 % Basophils (%) (Auto) 0.9 % Neutrophils # (Auto) 3.03 K/uL (1.4-6.5) Lymphocytes # (Auto) 1.68 K/uL (1.2-3.4) Monocytes # (Auto) 0.45 K/uL (0.11-0.59) Eosinophils # (Auto) 0.12 K/uL (0-0.5) Basophils # (Auto) 0.05 K/uL (0-0.2) RDW Standard Deviation 43.4 fL (36.4-46.3) RDW Coefficient of Variation 13.8 % (11.5-14.5) Immature Granulocyte % (Auto) 0.2 % Immature Granulocyte # (Auto) 0.01 K/uL (0.00-0.02) Prothrombin Time 10.0 SECONDS (9.0-12.0) Prothromb Time International Ratio 1.0 (0.9-1.1) Activated Partial Thromboplast Time 22.7 SECONDS (21.0-31.0) Partial Thromboplastin Ratio 0.9 Anion Gap 8.0 mmol/L (3-11) Est Creatinine Clear Calc Drug Dose 74.0 ml/min Estimated GFR () 74.7 Estimated GFR (Non- 64.4 BUN/Creatinine Ratio 10.0 (10-20) Calcium Level 8.9 mg/dl (8.5-10.1) Total Bilirubin 0.5 mg/dl (0.2-1) Direct Bilirubin 0.1 mg/dl (0-0.2) Aspartate Amino Transf (AST/SGOT) 14 U/L (15-37) Alanine Aminotransferase (ALT/SGPT) 25 U/L (12-78) Alkaline Phosphatase 101 U/L (45-117) Total Creatine Kinase 97 U/L (26-192) Creatine Kinase MB 0.5 ng/ml (0.5-3.6) Creatine Kinase MB Ratio 0.5 (0-3.0) Troponin I < 0.015 ng/ml (0-0.045) Total Protein 7.7 gm/dl (6.4-8.2) Albumin 3.6 gm/dl (3.4-5.0) Lipase 178 U/L (73-393) Urine Color YELLOW Urine Appearance CLEAR (CLEAR) Urine pH 7.5 (4.5-7.5) Urine Specific [place] 1.006 (1.000-1.030) Urine Protein NEG (NEG) Urine Glucose (UA) NEG (NEG) Urine Ketones NEG (NEG) Urine Occult Blood NEG (NEG) Urine Nitrite NEG (NEG) Urine Bilirubin NEG (NEG) Urine Urobilinogen NEG (NEG) Urine Leukocyte Esterase NEG (NEG) Laboratory results as stated above per my review. ECG Per My Interpretation Indication: SOB/dyspnea Rate (beats per minute): 69 Rhythm: normal sinus Findings: no ectopy, other (No ST elevations. ) ED Course 0701: Previous medical records were reviewed. The patient was evaluated in room B3B. A complete history and physical examination was performed. 0903: On reevaluation, the patient is resting comfortably. I discussed the results and findings with the patient. She verbalized agreement of the treatment plan. The patient was discharged home. Medical Decision Differential diagnosis: Etiologies such as infections, reactive airway disease, pneumonia, pneumothorax , COPD, CHF, cardiac ischemia, pulmonary embolism, musculoskeletal, gastrointestinal, as well as others were entertained. This is a 67-year-old female who presents to the ED with a chief complaint of a sensation of shortness of breath. The patient states that on Wednesday night she felt like she had a flare her nostrils in order to breathe. She felt some tightness in her neck. She states that yesterday she felt better. Last night she felt like she had some clogging in her throat and sinuses were draining. The patient does report a history of sinus issues. She felt like she was not getting enough air. The patient reported a little pressure in her chest. Her initial blood pressure today was elevated at 193/99. This improved during her ED stay. She does use medication for hypertension. The patient's physical exam was completely normal with the exception of some posterior erythema to the uvula and distal soft palate. She is in no distress. Her vital signs were otherwise unremarkable. CBC is normal, complete metabolic panel was unremarkable. An EKG shows a normal sinus rhythm at a rate of 69 without ischemic changes. Troponin was negative, urine did not show infection and a chest x-ray was negative for acute disease. The patient denies any lower extremity swelling, pain or issues relative to DVT risk factors. She denies any exertional symptoms or exertion making her current symptoms worse. She does report a history of reflux. She denies any other symptoms to suggest an upper respiratory infection. The patient was told the results of the test. She is felt to be stable for discharge. She does report having an EDG scheduled for further evaluation of her symptoms in 3 days. Medication Reconcilliation Current Medication List: was personally reviewed by me Blood Pressure Screening Patient's blood pressure: Elevated blood pressure Blood pressure disposition: Referred to PCP Impression Primary Impression: Dyspnea Additional Impressions: Throat fullness Post-nasal drip Scribe Attestation The scribe's documentation has been prepared under my direction and personally reviewed by me in its entirety. I confirm that the note above accurately reflects all work, treatment, procedures, and medical decision making performed by me. Departure Information Dispostion Home / Self-Care Referrals Steven Monroe M.D. (PCP) Patient Instructions My [facility] Additional Instructions Follow-up with your doctor for further care and evaluation in 1-2 days. Return to the emergency department for worsening or new symptoms or any concerns. You have been examined and treated today on an emergency basis only. This is not a substitute for, or an effort to provide, complete comprehensive medical care. It is impossible to recognize and treat all injuries or illnesses in a single emergency department visit. It is therefore important that you follow up closely with your doctor. Call as soon as possible for an appointment. Problem Qualifiers
[2017-09-20 09:22] VITALS: BP 123/81; PULSE 72; O2SAT 96
== END 2017-09-20 09:23 | disposition home or self-care (01) ==
LOC: C.EDB 06:49
DX: R06.00 Dyspnea, unspecified (principal); R09.82 Postnasal drip; L53.8 Other specified erythematous conditions; I10 Essential (primary) hypertension; E03.9 Hypothyroidism, unspecified; H81.09 Meniere's disease, unspecified ear; Z91.048 Other nonmedicinal substance allergy status; Z88.6 Allergy status to analgesic agent

== ENCOUNTER → 2017-09-23 | Day surgery (SDC) | payer BC ==
[2017-08-02 13:24] VITALS: Ht 175.3 cm; Wt 96.4 kg
[~2017-09-23] VITALS: Ht 175.3 cm; Wt 96.4 kg
[~2017-09-23] MED LIST changes: +LIDOCAINE HCL 2% 2 ML VIAL (20MG/ML) ONE; +PROPOFOL IV EMULSION 10 MG/ML 20 ML VIAL IV ONE
[2017-09-23 14:16] VITALS: TEMP 36.6
--- NOTE | 2017-09-23 14:17 | Endo History and Physical ---
History & Physical Date of Service: Sep 23, 2017. Chief Complaint: ABD PAIN, NAUSEA Referring Physician: DR LYNN History of Present Illness 67 yo CF who presents for EGD secondary to abdominal pain and nausea. Past Medical History Anxiety, Hypertension, Thyroid Disease, Depression Past Surgical History Hx Cardiac Surgery: Yes (HEART CATH X 2/NO STENTS) Hx Internal Defibrillator: No Hx Pacemaker: No Hx Abdominal Surgery: Yes (HYSTERECTOMY) Hx of Implantable Prosthesis: No Hx Post-Op Nausea and Vomiting: No Hx Cancer Surgery: No Hx Thoracic Surgery: No Hx Orthopedic: No Hx Urinary Tract Surgery: No Family History Polyp Social History Smoking Status: Never Smoker Hx Substance Use: No Hx Alcohol Use: No Allergies Coded Allergies: Hydrocodone (Verified Allergy, Mild, Rash, 09/23/17) Nickel (Verified Allergy, Unknown, RASH, 09/23/17) Current Medications Reported Home Medications Medications Dose Route/Sig Max Daily Dose Days Date Category Prilosec (Omeprazole) 20 Mg Capcr 20 Mg PO DAILY AFTERNOON 08/02/17 Reported Lipitor (Atorvastatin Calcium) 20 Mg Tab 20 Mg PO QAM 08/02/17 Reported Micardis (Telmisartan) 40 Mg Tab 40 Mg PO QAM 08/30/14 Reported Meclizine Hcl 25 Mg Tab 25 Mg PO TID PRN 08/30/14 Reported Ativan (Lorazepam) 0.5 Mg Tab 0.5-1 Mg PO Q6H PRN 08/30/14 Reported Synthroid (Levothyroxine Sodium) 75 Mcg Tab 75 Mcg PO QAM 08/30/14 Reported Vital Signs Weight (Kilograms): 96.36 Height (Feet): 5 Height (Inches): 9 Physical Exam General Appearance: WD/WN, no apparent distress Respiratory/Chest: Auscultation: breath sounds normal Cardiovascular: Heart Auscultation: RRR Abdomen: Bowel Sounds: normal Inspection & Palpation: soft, non-distended, no tenderness, guarding & rebound Assessment and Plan Assessment: 67 yo CF who presents for EGD secondary to abdominal pain and nausea. Plan: Proceed with EGD.
--- NOTE | 2017-09-23 15:37 | GI REPORT ---
Procedure Date: 09/23/2017 2:54 PM Procedure: Upper GI endoscopy Indications: Epigastric abdominal pain Medicines: Monitored Anesthesia Care Complications: No immediate complications. Estimated Blood Loss: Estimated blood loss: none. Procedure: Pre-Anesthesia Assessment: - Prior to the procedure, a History and Physical was performed, and patient medications and allergies were reviewed. The patient's tolerance of previous anesthesia was also reviewed. The risks and benefits of the procedure and the sedation options and risks were discussed with the patient. All questions were answered, and informed consent was obtained. Prior Anticoagulants: The patient has taken no previous anticoagulant or antiplatelet agents. ASA Grade Assessment: II - A patient with mild systemic disease. After reviewing the risks and benefits, the patient was deemed in satisfactory condition to undergo the procedure. After obtaining informed consent, the endoscope was passed under direct vision. Throughout the procedure, the patient's blood pressure, pulse, and oxygen saturations were monitored continuously. The scope was introduced through the mouth, and advanced to the second part of duodenum. The upper GI endoscopy was accomplished without difficulty. The patient tolerated the procedure well. Findings: A mild Schatzki ring (acquired) was found at the gastroesophageal junction. A TTS dilator was passed through the scope. Dilation with a 15-16.5-18 mm balloon dilator was performed to 18 mm. The dilation site was examined and showed no change. A small hiatal hernia was present. Localized mild inflammation characterized by erythema was found in the gastric antrum. Biopsies were taken with a cold forceps for histology. The examined duodenum was normal. Impression: - Mild Schatzki ring. Dilated. - Small hiatal hernia. - Gastritis. Biopsied. - Normal examined duodenum. Recommendation: - Resume previous diet. - Continue present medications. - Await pathology results. - Return to primary care physician as previously scheduled. Sherif Dinero DO 09/23/2017 3:36:38 PM This report has been signed electronically. Note Initiated On: 09/23/2017 2:54 PM I attest to the content of the Intraoperative Record and orders documented therein, exceptions below
--- NOTE | 2017-09-23 15:48 | Anesthesiology Progress Note ---
Anesthesia Post Op Note Date & Time Sep 23, 2017 at 15:48 Vital Signs Pain Intensity: 0 Vital Signs Past 12 Hours Date Time Temp Pulse Resp B/P (MAP) Pulse Ox O2 Delivery O2 Flow Rate FiO2 09/23/17 15:44 70 16 137/86 (103) 97 Room Air 09/23/17 15:29 80 16 121/73 (89) 98 Room Air 09/23/17 14:16 36.6 83 18 153/88 (109) 97 Room Air Notes Mental Status: alert / awake / arousable, participated in evaluation Pt Amnestic to Procedure: Yes Nausea / Vomiting: adequately controlled Pain: adequately controlled Airway Patency, RR, SpO2: stable & adequate BP & HR: stable & adequate Hydration State: stable & adequate Anesthetic Complications: no major complications apparent
[2017-09-23 15:59] VITALS: BP 139/90; PULSE 69; O2SAT 98
--- NOTE | 2017-09-23 16:20 | Discharge Instructions ---
Endoscopy Patient Instructions Date / Procedure(s) Performed Sep 23, 2017. EGD Allergy Information Coded Allergies: Hydrocodone (Verified Allergy, Mild, Rash, 09/23/17) Nickel (Verified Allergy, Unknown, RASH, 09/23/17) Discharge Date / Findings Sep 23, 2017. Schatzki's ring s/p dilation Hiatal hernia Gastritis s/p biopsies Medication Instructions OK to resume all medications today as prescribed Reported Home Medications Medications Dose Route/Sig Max Daily Dose Days Date Category Prilosec (Omeprazole) 20 Mg Capcr 20 Mg PO DAILY AFTERNOON 08/02/17 Reported Lipitor (Atorvastatin Calcium) 20 Mg Tab 20 Mg PO QAM 08/02/17 Reported Micardis (Telmisartan) 40 Mg Tab 40 Mg PO QAM 08/30/14 Reported Meclizine Hcl 25 Mg Tab 25 Mg PO TID PRN 08/30/14 Reported Ativan (Lorazepam) 0.5 Mg Tab 0.5-1 Mg PO Q6H PRN 08/30/14 Reported Synthroid (Levothyroxine Sodium) 75 Mcg Tab 75 Mcg PO QAM 08/30/14 Reported Provider Instructions Activity Restrictions - No exercising or heavy lifting for 24 hours. - Do not drink alcohol the day of the procedure. - Do not drive a car or operate machinery until the day after the procedure. - Do not make any important decisions or sign important papers in 24 hours after the procedure. Following Day: - Return to full activity which may include returning to work/school. Diet Start your diet with liquids and light foods (jello, soup, juice, toast). Then eat your usual diet if not nauseated. Treatment For Common After Affects For mild abdominal pain, bloating, or excessive gas: - Rest - Eat lightly - Lie on right side Follow-Up Information Follow-up with DR LYNN as scheduled Anesthesia Information What You Should Know You have had a procedure that required some medicine to reduce anxiety and discomfort. This treatment is called moderate sedation. After receiving the treatment, you may be sleepy, but you will be able to breathe on your own. The effects of the treatment may last for several hours. Follow these instructions along with Activity/Diet recommendations noted above: * Do NOT do anything where dizziness or clumsiness would be dangerous. * Rest quietly at home today, then you can be up and about tomorrow. * Have a responsible person stay with you the rest of today. * You may have had an I.V. today. If so, you may take the dressing off later today. Recommendations Call your doctor if: * Trouble breathing * Continuous vomiting for more than 24 hours * Temperature above 101 degrees * Severe abdominal pain or bloating * Pain not relieved by pain medicine ordered * There is increased drainage or redness from any incision * A large amount of rectal bleeding greater than 2-3 tablespoons. (If you had a polyp/s removed or have hemorrhoids, a small amount of blood - from the rectum is to be expected.) * You have any unanswered questions or concerns. IN THE EVENT OF A SERIOUS EMERGENCY, GO TO THE NEAREST EMERGENCY ROOM Your discharge instructions were prepared by provider Sherif Dinero. Patient Instructions Signature Page Katerina Rushing Patient (or Guardian) Signature/Date: I have read and understand the instructions given to me by my caregivers. Caregiver/RN/Doctor Signature/Date: The above-named patient and/or guardian has received patient instructions on this date. + Original Patient Signature Page (only) stays with chart. Please make copy for patient.
== END | disposition home or self-care (01) ==
LOC: C.GI 13:52
PROVIDERS: ATTEND Internal Medicine
DX: R10.13 Epigastric pain (principal); K22.2 Esophageal obstruction; K44.9 Diaphragmatic hernia without obstruction or gangrene; I10 Essential (primary) hypertension; K21.9 Gastro-esophageal reflux disease without esophagitis; H81.09 Meniere's disease, unspecified ear; Z86.711 Personal history of pulmonary embolism; Z88.5 Allergy status to narcotic agent; Z90.710 Acquired absence of both cervix and uterus

== ENCOUNTER → 2017-10-29 | Outpatient (CLI) | payer BC ==
[~2017-10-29] MED LIST changes: -LIDOCAINE HCL 2% 2 ML VIAL (20MG/ML) ONE; -PROPOFOL IV EMULSION 10 MG/ML 20 ML VIAL IV ONE
--- NOTE | 2017-10-29 17:39 | DIAGNOSTIC IMAGING REPORT ---
ULTRASOUND RIGHT LOWER EXTREMITY VENOUS CLINICAL HISTORY: Right leg pain. COMPARISON STUDY: Right lower extremity venous ultrasound dated 06/15/2017. TECHNIQUE: Real-time, grayscale, and color Doppler sonography of the deep veins of the right lower extremity was performed from the inguinal crease to the calf. Compression and augmentation were utilized. FINDINGS: There is no sonographic evidence of deep venous thrombosis identified in the right lower extremity. The common femoral, superficial femoral, and popliteal veins are patent and normally compressible. The greater saphenous vein and the profunda femoris vein at the junction with the common femoral vein are clear. The visualized calf veins are patent. IMPRESSION: There is no sonographic evidence of deep venous thrombosis identified in the right lower extremity. Electronically signed by: Jayson Nj M.D. 10/29/2017 5:37 PM Dictated Date/Time: 10/29/2017 5:37 PM
== END | disposition home or self-care (01) ==
LOC: C.ULTR 16:28
PROVIDERS: ATTEND Family Medicine Adult Medicine
DX: M79.604 Pain in right leg (principal)

== ENCOUNTER 2019-02-15 05:53 | Observation (INO) ==
--- NOTE | 2019-01-30 09:04 | PAT Medication Instructions ---
Medication Instructions Date of Service January 30, 2019 Home Medications Medication Instructions Recorded ergocalciferol (vitamin D2) 50,000 50,000 units PO .weekly for 10 12/22/18 unit capsule weeks #10 cap atorvastatin 20 mg PO HS levothyroxine 75 mcg PO QAM lorazepam 0.5 mg PO Q6 NEEDED meclizine 25 mg PO TID NEEDED omeprazole 20 mg PO QAM telmisartan 40 mg PO QAM ergocalciferol (vitamin D2) 50,000 unit capsule 50,000 units PO .weekly for 10 weeks Circulation And Vein Support 1 tab PO QDL Prebiotic Fiber 1 tsp PO QAM Continue as directed ergocalciferol (vitamin D2) 50,000 unit capsule 50,000 units PO .weekly for 10 weeks DO NOT take the morning of surgery meclizine 25 mg PO TID NEEDED telmisartan 40 mg PO QAM Circulation And Vein Support 1 tab PO QDL Prebiotic Fiber 1 tsp PO QAM Take morning of surgery With a small sip of water, OTHERWISE NOTHING TO EAT OR DRINK AFTER MIDNIGHT: levothyroxine 75 mcg PO QAM omeprazole 20 mg PO QAM lorazepam 0.5 mg PO Q6 NEEDED (if needed; stop 4 hours before surgery) Take evening before surgery atorvastatin 20 mg PO HS lorazepam 0.5 mg PO Q6 NEEDED (if needed) meclizine 25 mg PO TID NEEDED (if needed) Other Notes If you have any questions please call us at [phone] or [phone] or [phone] or [phone]
--- NOTE | 2019-02-01 11:21 | Anesthesiology Consultation ---
Date of Service February 01, 2019 Assessment & Plan (1) Encounter for pre-operative examination: PCP: 11/14/18: Refractory GERD. "Proceed with robotic assisted laparoscopic fundoplication." Chart Review Chart Review: Acceptable Risk for Surgery and Patient seen in Pre Admission Testing Teaching & Discussion Pre-Anesthesia Teaching/Discussion Notes: Instructed NPO after midnight before surgery,except medications with 15 cc of water. Medication instructions provided according to the PAT guidelines. History Surgery Operation Date: 11/23/18 07:30 Proposed Procedures p Robotic Laparoscopic Fundoplication with EGD - Sergey Reyna MD, FACS Operation Date: 02/15/19 07:30 Proposed Procedures p Robotic Laparoscopic Fundoplication, with - Sergey Reyna MD, FACS s Esophagogastroduodenoscopy - Sergey Reyna MD, FACS Height/Weight Height: 5 ft 8 in Weight: 98 kg Allergies Allergy/AdvReac Type Severity Reaction Status Date / Time hydrocodone Allergy Mild Rash Verified 01/27/19 10:59 nickel Allergy Mild RASH Verified 01/27/19 10:59 Additional Notes: *OR made aware of nickel allergy* Medications Home Medications Medication Instructions Recorded Confirmed Last Taken atorvastatin 20 mg PO HS 08/11/18 01/27/19 10/18/18 05:30 levothyroxine 75 mcg PO QAM 08/11/18 01/27/19 10/18/18 05:30 lorazepam 0.5 mg PO Q6 PRN 08/11/18 01/27/19 Unknown meclizine 25 mg PO TID PRN 08/11/18 01/27/19 Unknown omeprazole 20 mg PO QAM 08/11/18 01/27/19 10/18/18 05:30 telmisartan 40 mg PO QAM 08/11/18 01/27/19 10/18/18 05:30 ergocalciferol (vitamin D2) 50,000 50,000 units PO .weekly for 10 12/22/18 01/27/19 Unknown unit capsule weeks #10 cap Circulation And Vein Support 1 tab PO QDL 01/27/19 01/27/19 Unknown Probiotic Fiber 1 tsp PO DAILY 02/01/19 Unknown Past Medical History Medical History Anxiety GERD (gastroesophageal reflux disease) worsening 2/2 hiatal hernia (reason for upcoming surgery) History of Meniere's disease History of skin cancer s/p moh's Hx of deep venous thrombosis RLE DVT 2016 s/p right leg fracture/immobility- AC x 12 weeks; no issues since Hx of hepatitis C ? related to rhogam injections after childbirth; s/p treatment ("cleared") Hyperlipidemia Hypertension Hypothyroidism Mitral valve prolapse remotely told by doctor 25 years ago- no further details/recent echo Obesity Schatzki's ring s/p dilation Exercise / Class Metabolic Activity III < 4 Walking/Shop/Light housework Past Family History Family History Other No family history of adverse response to anesthesia Past Surgical History Surgical History History of Mohs micrographic surgery for skin cancer x2 History of bilateral tubal ligation History of breast surgery right breast mamillary glands removed History of cardiac cath x2; most recent 2007= no stents History of colonoscopy 10/18/18: MAC sedation at [facility] History of esophagogastroduodenoscopy (EGD) History of hysterectomy History of removal of cyst right breast History of tonsillectomy and adenoidectomy History of tooth extraction all upper, some lower teeth extractions Hx of nasal septoplasty Past Anesthesia History No Hx of Anesthesia Complications and No Family Hx of Anesthesia Complications History of PONV No Hx of PONV and Hx of Motion Sickness (occasional) Social History Smoking Status: Former smoker tobacco type: cigarettes Do You Dip or Chew Tobacco: No Smoking End Date: Quit 1989 Hx Alcohol Use: No Alcohol Intake Frequency Comment: 0 Hx Substance Use: No substance use type: does not use Review of Systems Patient denies chest pain, shortness of breath, cough, wheezing, palpitations. Physical Exam Vital Signs VITALS BP 131/83 P 75 TEMP 97.7 SP02 96%RA RESP 18 PHYSICAL Full neck and c-spine range of motion. Full TMJ range of motion. TMD 4 finger breaths Mallampati Score 2 Dentition: full dentures on upper/partial on lower Lungs: clear throughout to auscultation Cardiac: regular rate and rhythm, I/ systolic murmur LUSB Spine: normal Carotid arteries: negative bruit Extremities: no edema Testing Laboratory Results 02/01/19 11:54 02/01/19 11:24 Blood Type AB Negative 02/01/19 11:54 Antibody Screen NEGATIVE 02/01/19 11:54 Electrocardiogram Date: 02/01/19 NSR at 67bpm. NS TWA in anterior leads.
[2019-02-01 12:27] LABS: Basophils # (auto) 0.06 K/uL (0-0.2); Basophils % (auto) 1.1 %; Eosinophils # (auto) 0.14 K/uL (0-0.5); Eosinophils % (auto) 2.7 %; Hematocrit (blood only) 42.2 % (37-47); Immature Granulocytes # (auto) 0.01 K/uL (0.00-0.02); Immature Granulocytes % (auto) 0.2 %; Lymphocytes # (auto) 1.88 K/uL (1.2-3.4); Lymphocytes % (auto) 35.7 %; Mean Corpuscular Hgb Conc 33.2 g/dL (32-36); Mean Corpuscular Volume 87.2 fL (80-100); Mean Platelet Volume 12.1 fL (7.4-10.4); Monocytes # (auto) 0.37 K/uL (0.11-0.59); Neutrophils # (auto) 2.81 K/uL (1.4-6.5); Neutrophils % (auto) 53.3 %; Platelet Count 242 K/uL (130-400); RDW Standard Deviation 44.1 fL (36.4-46.3); Red Blood Count 4.84 M/uL (4.2-5.4); White Blood Count 5.27 K/uL (4.8-10.8)
[2019-02-01 13:33] LABS: BUN Creatinine Ratio 10.1 (10-20); Calcium 8.8 mg/dl (8.5-10.1); Creatinine Clr Calc Pharmacy 72.4 ml/min; Est GFR (African American) 75.1; Est GFR (Non-African American) 64.8; Potassium 3.6 mmol/L (3.5-5.1)
[2019-02-15] MEDS ORDERED: LR 15ML/HR IV SCH (06:00)
[2019-02-15] MEDS ORDERED: ePHEDrine sulfate 50 MG/ML AMP IV PRN (06:38)
[2019-02-15] MEDS ORDERED: ATROPINE SULFATE 0.1 MG/ML 10ML SYR IV PRN (06:38)
[2019-02-15] MEDS ORDERED: ONDANSETRON INJ 2 MG/ML 2 ML VIAL IV PRN (06:38)
[2019-02-15] MEDS ORDERED: fentaNYL citrate 100 MCG/2 ML VIAL ONE ×5 (06:48→11:16)
[2019-02-15] MEDS ORDERED: NEOSTIGMINE METHYLSULFATE 5 MG/5 ML SYR ONE (06:48)
[2019-02-15] MEDS ORDERED: LIDOCAINE HCL 2% 2 ML VIAL/AMP(20MG/ML) INFIL ONE (06:48)
[2019-02-15] MEDS ORDERED: GLYCOPYRROLATE 0.2 MG/ML VIAL ONE (06:48)
[2019-02-15] MEDS ORDERED: DEXAMETHASONE SOD INJ 4 MG/ML VIAL ONE (06:48)
[2019-02-15] MEDS ORDERED: ONDANSETRON INJ 2 MG/ML 2 ML VIAL ONE (06:48)
[2019-02-15] MEDS ORDERED: PROPOFOL IV EMULSION 10 MG/ML 20 ML VIAL IV ONE (06:48)
[2019-02-15] MEDS ORDERED: MIDAZOLAM HCL 1 MG/ML 2ML VIAL ONE (06:49)
--- NOTE | 2019-02-15 06:51 | History & Physical Bridge Note ---
Date of Service February 15, 2019 History & Physical Bridge Note I have examined the patient, reviewed the History & Physical and in the interval since the performance of the History & Physical I have noted the following changes of clinical significance: no changes noted
[2019-02-15] MEDS ORDERED: BUPIVACAINE 0.5 % 5 MG/1 ML MPF 30ML VIAL ONE (07:04)
[2019-02-15] MEDS ORDERED: SODIUM CHLORIDE 0.9% PF 50 ML VIAL ONE (07:04)
[2019-02-15] MEDS ORDERED: BUPIVACAINE LIPOSOME 1.3% 266 MG/20 ML VIAL ONE (07:04)
[2019-02-15] MEDS ORDERED: ROCURONIUM BROMIDE 10 MG/ML 5 ML VIAL ONE ×2 (08:02→08:48)
[2019-02-15] MEDS ORDERED: CEFAZOLIN 250 MG/ML 1 GM VIAL ONE (08:02)
[2019-02-15] MEDS ORDERED: SUCCINYLCHOLINE CHLORIDE 20 MG/ML 10 ML VIAL ONE (08:02)
--- NOTE | 2019-02-15 10:59 | Post Operative Brief Note ---
PG Immediate Post Op with CF Date of Surgery February 15, 2019 Pre & Post Diagnosis Operation Date: 11/23/18 07:30 <No data on this case meets the specified criteria> Operation Date: 02/15/19 07:30 Pre-Op Diagnosis: Hiatal Hernia, gastroesophageal reflux disease Post-Op Diagnosis: Hiatal Hernia, gastroesophageal reflux disease Procedure Operation Date: 11/23/18 07:30 <No data on this case meets the specified criteria> Operation Date: 02/15/19 07:30 Actual Procedures p Robotic Laparoscopic Toupet partial Fundoplication , Hiatal Hernia with Patch with Esophagogastroduodenoscopy(Not Applicable) - Sergey Reyna MD, FACS Surgeon Sergey Reyna MD, FACS Chest Painting Leader [employer] Estimated Blood Loss 5 Findings Consistent with Post-Op Diagnosis Specimens Specimen Description: A. gastroesophageal fat pad Drains Miller Catheter
[2019-02-15] MEDS: fentaNYL citrate 100 MCG/2 ML VIAL IV PRN ×4 (11:37→12:00)
--- NOTE | 2019-02-15 12:26 | XRay Report ---
XR chest 1V not portable CLINICAL HISTORY: Postop Dayanara fundoplication COMPARISON STUDY: September 20, 2017 FINDINGS: There is subcutaneous air within the base of the neck. The heart is at the upper limits of normal in size. There is a 13 mm left apical pneumothorax. There are left lower lobe airspace opaciti es, atelectatic versus pneumonia. There are minor right basilar atelectatic changes. There is no fail ure.[ IMPRESSION: 1. 13 mm left apical pneumothorax 2. Subcutaneous air within the base of the neck 3. Left lower lobe airspace opacities, atelectasis versus pneumonia. Electronically signed by: Wang Resendiz M.D. 02/15/2019 12:25 PM
--- NOTE | 2019-02-15 12:38 | Anesthesiology Progress Note ---
Date of Service February 15, 2019 Anesthesia Post Procedure Vital Signs Vital Signs: Temp Pulse Pulse Resp BP Pulse Ox 02/15/19 12:30 97.9 F 86 17 128/71 97 02/15/19 12:20 97.9 F 72 18 108/67 96 02/15/19 12:10 97.9 F 86 15 122/71 97 02/15/19 12:00 97.9 F 80 15 134/70 96 02/15/19 11:50 97.2 F L 87 10 L 128/70 96 02/15/19 11:40 97.2 F L 85 10 L 140/84 94 02/15/19 11:30 97.2 F L 94 H 17 133/86 94 02/15/19 11:20 97.2 F L 90 13 141/81 H 95 02/15/19 11:11 97.2 F L 102 H 16 133/79 95 02/15/19 06:23 98.1 F 78 16 151/110 H 97 Pain Intensity Abdomen: Pain Intensity: 2 Transfer of Care Handoff Completed per policy Notes Mental Status: alert / awake / arousable and participated in evaluation Patient Amnestic to Procedure: Yes Nausea / Vomiting: adequately controlled Pain: adequately controlled Airway Patency, RR, SpO2: stable & adequate BP & HR: stable & adequate Hydration State: stable & adequate Anesthetic Complications: no major complications apparent and Pt Satisfied with anesthetic care
[2019-02-15] MEDS ORDERED: LORazepam 0.5 MG TAB PO PRN (12:55)
[2019-02-15] MEDS ORDERED: DICYCLOMINE HCL 10 MG CAP PO PRN (12:55)
--- NOTE | 2019-02-15 13:14 | Operative Report ---
DATE OF OPERATION: 02/15/2019 PREOPERATIVE DIAGNOSIS: Hiatal hernia with recalcitrant gastroesophageal reflux. POSTOPERATIVE DIAGNOSIS: Hiatal hernia with recalcitrant gastroesophageal reflux. PROCEDURE: 1. Robotic-assisted laparoscopic repair of hiatal hernia with reinforcement using OviTex absorbable mesh. 2. Toupet partial fundoplication. 3. Esophagogastroscopy. SURGEON: Sergey Reyna MD. CAN SORTER: CARLENE Abraham. ANESTHESIA: General anesthesia with endotracheal intubation. INDICATION FOR PROCEDURE AND FINDINGS: Katerina is a very nice 68-year-old patient of Dr. Mike Monroe who has had intractable gastroesophageal reflux for many years. She has a small hiatal hernia. We had a long talk about this in the office on 2 occasions and elected to proceed with a repair. On 02/15/2019, the patient underwent an uncomplicated robot-assisted laparoscopic fundoplication and repair of her hernia. Her hernia was a bit larger than I thought, but this came together under no tension. Her on-table esophagoscopy looked quite good. DESCRIPTION OF PROCEDURE: The patient was brought to the operating room and laid in supine position. General anesthesia was induced. Endotracheal intubation was performed without difficulty. The patient was prepped and draped in the usual sterile fashion. After appropriate timeout had been called, an incision was made in the midline above the umbilicus a few centimeters. A 5-mm laparoscopic port was placed and under vision using the 5 mm 0-degree laparoscope, we were able to go down and enter the peritoneal cavity without difficulty. This was then switched over to a 12-mm camera port. Carbon dioxide was insufflated. We then placed a port in the midclavicular line on the right and the left and then two 5-mm ports more distally. We then placed a 12-mm port in the left periumbilical area for the assistance port. The patient was then placed in marked reverse Trendelenburg and the robot was docked. The pretzel retractor was placed through the 5-mm port, which had been placed laterally and on the right inferiorly. This went very nicely. We were able to lift up the left lobe of the diaphragm quite nicely. We could see the hiatus quite nicely. We then took down the pars flaccida on the right and identified the right diaphragmatic crura very nicely. We then took down a small sac and we were able to easily reduce the esophagus into the abdominal cavity. We then freed this up posteriorly and came down along the left quentin of the diaphragm posteriorly and then anteriorly brought this down too. We got around this quite nicely. We were able to place a 1/2-inch [place] around this and retract to the right. We then started off more distally and took the short gastrics from about the mid portion of the stomach up using a vessel sealer. This went very nicely. I was quite pleased with how all of this looked. A 0 silk was used in a [id number] fashion x2 and then a simple fashion to close the posterior crura. This came together under no tension. We then selected a piece of the OviTex absorbable mesh and cut a very small portion just enough to cover the repair and sutured it in place with 2-0 Vicryl suture. We were then easily able to perform the fundoplication. We did a partial fundoplication as she had some esophageal dysmotility on her barium swallow. A 2-0 silk was used to anchor the esophagus to the diaphragmatic crura and into the fundus on the right. We placed 3 separate sutures on the right and then 3 separate sutures on the left and this looked very nice. We then undocked the robot and flattened the patient out and I performed an on-table esophagoscopy. This was done without difficulty. I went down and went through the GE junction without difficulty. On retroflexion, the fundoplication looked quite nice. I then removed the esophagoscope and we closed the patient. We removed all of our ports and released all of the carbon dioxide. A #1 PDS was used to close the two fascial defects for the two 12-mm ports. A 4-0 Monocryl was used in running subcuticular fashion to approximate the wound edges. We had negligible blood loss. She tolerated it well. I attest to the content of the Intraoperative Record and any orders documented therein. Any exceptions are noted below. BENJA
[2019-02-15] MEDS: D5W AND 1/2NSS 1,000 ML IV SCH ×2 (13:44→23:41)
[2019-02-15] MEDS: KETOROLAC TROMETHAMINE 15 MG/ML VIAL IV SCH ×2 (13:44→21:30)
[2019-02-15] MEDS: METOCLOPRAMIDE HCL INJ 5 MG/ML 2 ML VIAL IV SCH ×2 (13:44→21:23)
[2019-02-15] MEDS: ONDANSETRON INJ 2 MG/ML 2 ML VIAL IV PRN (19:24)
[2019-02-15] MEDS ORDERED: ATORVASTATIN 20 MG TAB PO SCH (21:00)
[2019-02-15] MEDS ORDERED: MoRPHine SULFATE 2 MG/ML CARP IV PRN (23:50)
[2019-02-16] MEDS ORDERED: MoRPHine SULFATE 2 MG/ML CARP ONE (00:23)
[2019-02-16] MEDS: ONDANSETRON INJ 2 MG/ML 2 ML VIAL IV PRN (00:27)
[2019-02-16] MEDS: METOCLOPRAMIDE HCL INJ 5 MG/ML 2 ML VIAL IV SCH (05:22)
[2019-02-16] MEDS: KETOROLAC TROMETHAMINE 15 MG/ML VIAL IV SCH (05:22)
[2019-02-16] MEDS ORDERED: LEVOTHYROXINE SODIUM 75 MCG TABLET PO SCH (06:30)
[2019-02-16] MEDS: D5W AND 1/2NSS 1,000 ML IV SCH (07:47)
[2019-02-16] MEDS ORDERED: ASPIRIN 81 MG ECTAB PO SCH (09:00)
[2019-02-16] MEDS ORDERED: OMEPRAZOLE 20 MG CAPCR PO SCH (09:00)
[2019-02-16] MEDS ORDERED: TELMISARTAN 40 MG TAB PO SCH (09:00)
--- NOTE | 2019-02-16 09:03 | Fluoroscopy Report ---
FL barium swallow CLINICAL HISTORY: s/p hiatal hernia repair COMPARISON STUDY: None. FLUOROSCOPY TIME: 0.8 minutes. 11 fluoroscopic spot images submitted. FINDINGS: The patient swallowed thin barium without difficulty. Mild esophageal dysmotility. The esop hagus is normal in course and caliber. No hiatus hernia. No gastroesophageal reflux demonstrated duri ng the examination. The Dayanara fundoplication is gas-filled and distended. However, no evidence for e xtraluminal contrast to suggest a leak. Contrast extends through the stomach into the small bowel in a timely fashion. IMPRESSION: Status post Dayanara fundoplication. No obstruction or extraluminal contrast to suggest a l eak. Electronically signed by: Afshin Hummel M.D. 02/16/2019 9:02 AM
--- NOTE | 2019-02-16 10:51 | Discharge Summary ---
DISCHARGE DIAGNOSIS: Hiatal hernia with recalcitrant gastroesophageal reflux disease. HOSPITAL COURSE: This is a 68-year-old patient of Dr. Mike Monroe who has been bothered with gastroesophageal reflux disease for about 30 years, which has become more unresponsive to medications. She has a small hiatal hernia. After a long talk and much discussion and multiple visits, we elected to proceed with an operative repair. On 02/15/2019, the patient underwent an uncomplicated robot-assisted laparoscopic repair of her hiatal hernia and a Toupet partial fundoplication. She did well except she had pain in her incision sites as would be expected. She is ambulating in the hallway. She tolerated liquids. A barium swallow done the day after surgery looked quite good. There was some dilatation of her stomach, but otherwise I think she looked quite good. The dye went through quite nicely. It also emptied into her small bowel. I will see her back in the office in about 10 days. Discharge instructions have been given. She is to call me if there are any issues.
== END 2019-02-16 10:52 | disposition home or self-care (01) ==
LOC: 3W 05:53 → ASU 05:53

== ENCOUNTER 2021-01-01 10:41 | Observation (INO) ==
[2021-01-01] MEDS ORDERED: SODIUM CHLORIDE 0.9% 500 ML IV STA (10:54)
--- NOTE | 2021-01-01 10:59 | Emergency Department Note ---
Impression & Plan Chest pain, Abnormal ECG, Portal vein thrombosis ED Provider Note NAME: CHELSEA HAYES AGE: 70 SEX: F : 1950 ARRIVES VIA: Ambulance INFORMANT: Patient ED PROVIDER(S): Heber Whitaker DO CHIEF COMPLAINT: Chest pain HPI: Patient is a 70-year-old female with a past medical history of hypertension hyperlipidemia presents to the ER for chest pain which has been going off and on for the past several weeks. She got up this morning it was sharper than what it typically is. She denies any shortness of breath arm or jaw pain with it she was a little nauseated and diaphoretic with it. Denies any belly pain. No dysuria urgency or frequency. No history of any previous heart disease. She was given 2 nitro and the pain resolved and now her chest just feels little sore. She took 3 aspirin and EMS gave her an additional aspirin prior to arrival. Pain is 0 out of 10 currently. No other exacerbating or remitting factors. She does not believe that is exertional but is not 100% sure ROS: See above HPI for pertinent positives & negatives. A total of 10 systems reviewed and were otherwise negative. PAST MEDICAL HISTORY:See Below PAST SURGICAL HISTORY:See Below FAMILY HISTORY:See Below SOCIAL HISTORY:See Below HOME MEDICATIONS:See Below ALLERGIES:See Below VITALS:See Below PHYSICAL EXAMINATION: GENERAL: Sitting up in bed, alert, well appearing, well nourished, no distress, non-toxic EYE EXAM: normal conjunctiva. OROPHARYNX: no exudate, no erythema, lips, buccal mucosa, and tongue normal and mucous membranes are moist NECK: supple, no nuchal rigidity, no adenopathy, non-tender LUNGS: Clear to auscultation. Normal chest wall mechanics HEART: no murmurs, S1 normal and S2 normal ABDOMEN: abdomen soft, non-tender, normo-active bowel sounds, no masses, no rebound or guarding. UPPER EXTREMITIES: upper extremities are grossly normal. LOWER EXTREMITIES: No pitting edema. Calves are equal bilateral NEURO EXAM: Normal sensorium, cranial nerves II-XII grossly intact, normal speech, no gross weakness of arms, no gross weakness of legs. MEDICAL DECISION MAKING: Patient is a 70-year-old female who presents ER for chest pain. She was given aspirin and nitro and pain has resolved. IV was established blood work was obtained. Labs show no significant leukocytosis or anemia. INR was unremarkable. BMP slightly elevated chloride. Troponin was negative. EKG with new T wave inversions in comparison to previous. She is pain-free. Chest x-ray was unremarkable with a question bubble free air in the abdomen and consequently CT of the abdomen and chest were performed which showed a left portal venous thrombus. Patient was admitted to the hospitalist for further work-up. Triage Nursing notes reviewed. Limited review of prior medical records performed Vital Signs: reviewed and remarkable for no significant abnormalities Differential diagnosis: Differential diagnoses includes but is not limited to acute coronary syndrome, myocardial infarction, pericarditis, pulmonary embolus, aortic dissection, pneumonia, pneumothorax, musculoskeletal, shingles, esophageal. ER treatment provided: See below Diagnostics interpreted by me: ECG: Sinus rhythm rate of 69 Normal axis Low voltage T wave inversion in the septal anterior leads with T wave flattening in the lateral leads T wave flattening in the inferior leads T wave changes are new in comparison to September 2020 Cardiac Monitoring: An order was placed for continuous cardiac monitoring. The monitor shows a rate of 72 with sinus rhythm. Laboratory studies: As stated above and show below. Imaging studies: CT angio of the chest shows no PE CT abdomen pelvis shows a left portal venous thrombus Portable AP upright 1 view of the chest showed no focal infiltrate but a questionable free air in the belly Consultation(s): Discussed with hospitalist for further evaluation Procedures: none Critical Care: None Past Med/Surg History Medical History Depression GERD (gastroesophageal reflux disease) worsening 2/2 hiatal hernia (reason for upcoming surgery) History of COVID-19 diagnosed 08/21/20 @ [facility]--had a headache and scratchy throat week before testing positive--states on 08/28/20 no symptoms History of Meniere's disease History of skin cancer s/p moh's Hx of deep venous thrombosis RLE DVT 2016 s/p right leg fracture/immobility- AC x 12 weeks; no issues since Hx of hepatitis C ? related to rhogam injections after childbirth; s/p treatment ("cleared") Hyperlipidemia Hypertension Hypothyroidism IBS (irritable bowel syndrome) Impaired fasting glucose Metabolic syndrome Migraine Mitral valve prolapse Remotely told by doctor 25 years ago- no further details/recent echo No murmur noted on PCP physical exams Obesity Schatzki's ring s/p dilation Situational anxiety Surgical History H/O exploratory laparotomy (09/26/20) Diagnostic Laparoscopy, Enterolysis; Repair of Umbilical Hernia Laparoscopic Cholecystectomy Dr. Sage 09/26/2020 H/O umbilical hernia repair (09/26/20) Diagnostic Laparoscopy, Enterolysis; Repair of Umbilical Hernia Laparoscopic Cholecystectomy Dr. Sage 09/26/2020 History of bilateral tubal ligation History of breast biopsy History of breast surgery right breast mamillary glands removed History of cardiac cath x2; most recent 2007= no stents History of colonoscopy 10/18/18: MAC sedation at [facility] History of esophagogastroduodenoscopy (EGD) History of hysterectomy History of liver biopsy History of Mohs micrographic surgery for skin cancer x2 History of removal of cyst right breast History of tonsillectomy and adenoidectomy History of tooth extraction all upper, some lower teeth extractions Hx laparoscopic cholecystectomy (09/26/20) Diagnostic Laparoscopy, Enterolysis; Repair of Umbilical Hernia Laparoscopic Cholecystectomy Dr. Sage 09/26/2020 Status post correction of deviated nasal septum Status post Dayanara fundoplication (02/15/19) Robotic Laparoscopic Toupet partial Fundoplication , Hiatal Hernia with Patch with Esophagogastroduodenoscopy Dr. Reyna 02-15-19 Family History Father Heart disease Diverticulitis Hx of CABG, Onset Age: 63 Mother History of PTCA 1, Onset Age: 60 Other No family history of adverse response to anesthesia Denies family history of Ovarian cancer Prostate cancer Breast cancer Lung cancer Colorectal cancer Social History (Updated 01/01/21 @ 13:05 by Sadaf Croft MD) Smoking Status: Former smoker Tobacco Type: Cigarettes Age Quit Using Tobacco: 40; Second Hand Exposure: No; Hx Alcohol Use: No Hx Substance Use: No Preferred Language: [place] Communication Ability: Effective Visual Impairment: No Limitations Hearing Ability: Normal 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: No Beliefs That Will Affect Care: None marital status: Current Living Situation: Spouse current occupational status: retired Feels Safe at Home: Yes Childhood Exposure to Second-Hand Smoke: No Diet Comment: regular caffeine: Yes during the past year weight has: decreased > 10 lbs Dental Care, Regularly: Yes Physical Activity Frequency: Daily Physical Activity Frequency Comment: walk Seatbelt Use: always Assistive Devices: Denture - Upper and Glasses Allergies Allergies Allergy/AdvReac Type Severity Reaction Status Date / Time hydrocodone Allergy Mild Rash Verified 12/27/20 14:09 nickel Allergy Mild RASH Verified 12/27/20 14:09 paroxetine [From Paxil] AdvReac Intermediate sleepiness Verified 12/27/20 14:09 acetaminophen [From Vicodin] AdvReac Mild Gastrointestinal Verified 12/27/20 14:09 Upset Antihistamines - Alkylamine AdvReac Mild Jitters Verified 12/27/20 14:09 azithromycin [From Zithromax] AdvReac Mild Gastrointestinal Verified 12/27/20 14:09 Upset citalopram [From Celexa] AdvReac Mild Gastrointestinal Verified 12/27/20 14:09 Upset Home Meds Home Medications Medication Instructions Recorded Confirmed aspirin 81 mg tablet,delayed 81 mg PO QPM tab 01/02/20 01/01/21 release Citracal Plus Bone Density 1 tab PO QPM 08/28/20 01/01/21 Probichew 1 tab PO QPM 08/28/20 01/01/21 atorvastatin 20 mg PO QPM 08/28/20 01/01/21 cholecalciferol (vitamin D3) 4,000 unit PO QPM 08/28/20 01/01/21 omega-3 fatty acids 1,000 mg PO QPM 08/28/20 01/01/21 telmisartan 40 mg PO QAM 08/28/20 01/01/21 Previous Rx's Medication Instructions Recorded ondansetron HCl 4 mg tablet 4 mg PO Q8H PRN #30 tab 10/01/20 levothyroxine 75 mcg tablet 75 mcg PO QAM #90 tab 10/22/20 cholestyramine (with sugar) 4 gram 4 g PO DAILY #378 g 12/24/20 oral powder lorazepam 0.5 mg tablet 0.5 mg PO Q6H PRN #60 tab 12/27/20 sertraline 50 mg tablet 50 mg PO DAILY #30 tab 12/27/20 Results & Data (ED) Vital Signs Vital Signs - 24 hr 01/01/21 10:45 01/01/21 10:50 01/01/21 10:51 Temperature 36.8 C Temperature Source Oral Pulse Rate 84 69 84 Pulse Rate [Right Finger] Pulse Rate from SpO2 Sensor 84 83 Pulse Rhythm [Right Finger] Pulse Strength [Right Finger] Respiratory Rate 19 16 16 Respiratory Effort / Characteristics Non-Labored Spontaneous Respiratory Depth Normal Respiratory Pattern Regular Blood Pressure 136/92 136/92 Blood Pressure [Right Arm] Blood Pressure Mean 106 106 Blood Pressure Mean [Right Arm] Blood Pressure Position Sitting Pulse Oximetry 93 96 95 Oxygen Delivery Method Room Air Sepsis Recent Fever Within 48 Hours No Sepsis New/Unexplained Change in Mental Status No Sepsis Action Taken by Nursing No Action Required 01/01/21 11:00 01/01/21 11:09 01/01/21 11:10 Temperature Temperature Source Pulse Rate 72 68 Pulse Rate [Right Finger] Pulse Rate from SpO2 Sensor 73 71 Pulse Rhythm [Right Finger] Pulse Strength [Right Finger] Respiratory Rate 13 14 Respiratory Effort / Characteristics Non-Labored Respiratory Depth Normal Respiratory Pattern Blood Pressure Blood Pressure [Right Arm] Blood Pressure Mean Blood Pressure Mean [Right Arm] Blood Pressure Position Pulse Oximetry 97 98 Oxygen Delivery Method Sepsis Recent Fever Within 48 Hours Sepsis New/Unexplained Change in Mental Status Sepsis Action Taken by Nursing 01/01/21 11:11 01/01/21 11:15 01/01/21 11:20 Temperature Temperature Source Pulse Rate 68 67 77 Pulse Rate [Right Finger] Pulse Rate from SpO2 Sensor 68 69 76 Pulse Rhythm [Right Finger] Pulse Strength [Right Finger] Respiratory Rate 19 16 17 Respiratory Effort / Characteristics Respiratory Depth Respiratory Pattern Blood Pressure 143/90 H 135/89 Blood Pressure [Right Arm] Blood Pressure Mean 107 104 Blood Pressure Mean [Right Arm] Blood Pressure Position Pulse Oximetry 98 98 98 Oxygen Delivery Method Sepsis Recent Fever Within 48 Hours Sepsis New/Unexplained Change in Mental Status Sepsis Action Taken by Nursing 01/01/21 11:30 01/01/21 11:40 01/01/21 11:52 Temperature Temperature Source Pulse Rate 64 69 66 Pulse Rate [Right Finger] Pulse Rate from SpO2 Sensor 65 68 Pulse Rhythm [Right Finger] Pulse Strength [Right Finger] Respiratory Rate 18 23 18 Respiratory Effort / Characteristics Respiratory Depth Respiratory Pattern Blood Pressure 136/85 Blood Pressure [Right Arm] Blood Pressure Mean 102 Blood Pressure Mean [Right Arm] Blood Pressure Position Pulse Oximetry 96 98 Oxygen Delivery Method Sepsis Recent Fever Within 48 Hours Sepsis New/Unexplained Change in Mental Status Sepsis Action Taken by Nursing 01/01/21 11:53 01/01/21 12:00 01/01/21 12:10 Temperature Temperature Source Pulse Rate 65 68 61 Pulse Rate [Right Finger] Pulse Rate from SpO2 Sensor 67 70 62 Pulse Rhythm [Right Finger] Pulse Strength [Right Finger] Respiratory Rate 15 14 22 Respiratory Effort / Characteristics Respiratory Depth Respiratory Pattern Blood Pressure 173/98 H 158/89 H Blood Pressure [Right Arm] Blood Pressure Mean 123 112 Blood Pressure Mean [Right Arm] Blood Pressure Position Pulse Oximetry 98 99 100 Oxygen Delivery Method Sepsis Recent Fever Within 48 Hours Sepsis New/Unexplained Change in Mental Status Sepsis Action Taken by Nursing 01/01/21 12:15 01/01/21 12:20 01/01/21 12:29 Temperature Temperature Source Pulse Rate 62 57 L Pulse Rate [Right Finger] Pulse Rate from SpO2 Sensor 64 57 L Pulse Rhythm [Right Finger] Pulse Strength [Right Finger] Respiratory Rate 23 20 Respiratory Effort / Characteristics Respiratory Depth Respiratory Pattern Blood Pressure 159/85 H Blood Pressure [Right Arm] Blood Pressure Mean 109 Blood Pressure Mean [Right Arm] Blood Pressure Position Pulse Oximetry 98 98 97 Oxygen Delivery Method Room Air Sepsis Recent Fever Within 48 Hours Sepsis New/Unexplained Change in Mental Status Sepsis Action Taken by Nursing 01/01/21 12:30 01/01/21 12:45 01/01/21 13:00 Temperature Temperature Source Pulse Rate 60 63 63 Pulse Rate [Right Finger] Pulse Rate from SpO2 Sensor 60 61 61 Pulse Rhythm [Right Finger] Pulse Strength [Right Finger] Respiratory Rate 19 14 12 Respiratory Effort / Characteristics Respiratory Depth Respiratory Pattern Blood Pressure 179/89 H 156/90 H 158/90 H Blood Pressure [Right Arm] Blood Pressure Mean 119 112 112 Blood Pressure Mean [Right Arm] Blood Pressure Position Pulse Oximetry 98 98 97 Oxygen Delivery Method Sepsis Recent Fever Within 48 Hours Sepsis New/Unexplained Change in Mental Status Sepsis Action Taken by Nursing 01/01/21 13:09 01/01/21 13:44 Temperature Temperature Source Pulse Rate Pulse Rate [Right Finger] 75 Pulse Rate from SpO2 Sensor Pulse Rhythm [Right Finger] Regular Pulse Strength [Right Finger] Normal Respiratory Rate 19 Respiratory Effort / Characteristics Non-Labored Non-Labored Respiratory Depth Normal Normal Respiratory Pattern Regular Blood Pressure Blood Pressure [Right Arm] 112/54 L Blood Pressure Mean Blood Pressure Mean [Right Arm] 73 Blood Pressure Position Pulse Oximetry 99 Oxygen Delivery Method Room Air Sepsis Recent Fever Within 48 Hours Sepsis New/Unexplained Change in Mental Status Sepsis Action Taken by Nursing Laboratory Data Result diagrams: 01/01/21 10:55 01/01/21 10:55 Lab Results 01/01/21 01/01/21 01/01/21 Range/Units 10:55 10:55 10:55 WBC 8.21 (4.8-10.8) K/uL RBC 4.67 (4.2-5.4) M/uL Hgb 13.7 (12.0-16.0) g/dL Hct 41.4 (37-47) % MCV 88.7 (80-100) fL MCH 29.3 (25-34) pg MCHC 33.1 (32-36) g/dL RDW Std Deviation 45.9 (36.4-46.3) fL RDW Coeff of Erin 14.1 (11.5-14.5) % Plt Count 247 (130-400) K/uL MPV 11.6 H (7.4-10.4) fL Immature Gran % (Auto) 0.1 % Neut % (Auto) 69.5 % Lymph % (Auto) 22.4 % [place] % (Auto) 5.8 % Eos % (Auto) 1.8 % Baso % (Auto) 0.4 % Neut # (Auto) 5.70 (1.4-6.5) K/uL Lymph # (Auto) 1.84 (1.2-3.4) K/uL [place] # (Auto) 0.48 (0.11-0.59) K/uL Eos # (Auto) 0.15 (0-0.5) K/uL Baso # (Auto) 0.03 (0-0.2) K/uL Immature Gran # (Auto) 0.01 (0.00-0.02) K/uL PT 10.2 (9.0-12.0) Seconds INR 1.0 (0.9-1.1) APTT 23.1 (21.0-31.0) Seconds PTT Ratio 0.9 Sodium 140 (136-145) mmol/L Potassium 3.9 (3.5-5.1) mmol/L Chloride 110 H (98-107) mmol/L Carbon Dioxide 28 (21-32) mmol/L Anion Gap 2.0 L (3-11) BUN 11 (7-18) mg/dl Creatinine 0.85 (0.6-1.2) mg/dl Est Cr Clr Drug Dosing 74.5 ml/min Est GFR ( Amer) 80.5 ml/min Est GFR (Non-Af Amer) 69.4 ml/min BUN/Creatinine Ratio 13.3 (10-20) Glucose 106 H (70-99) mg/dl Calcium 9.1 (8.5-10.1) mg/dl Total Bilirubin 0.7 (0.2-1) mg/dl AST 18 (15-37) U/L ALT 34 (12-78) U/L Alkaline Phosphatase 81 (45-117) U/L Troponin I < 0.015 (0-0.045) ng/ml Total Protein 7.0 (6.4-8.2) gm/dl Albumin 3.6 (3.4-5.0) gm/dl Globulin 3.4 (2.5-4.0) gm/dl Albumin/Globulin Ratio 1.1 (0.9-2) Lipase 161 (73-393) U/L COVID-19 Eval Order SARS-CoV-2 (PCR) (Negative) 01/01/21 01/01/21 Range/Units 11:20 11:20 WBC (4.8-10.8) K/uL RBC (4.2-5.4) M/uL Hgb (12.0-16.0) g/dL Hct (37-47) % MCV (80-100) fL MCH (25-34) pg MCHC (32-36) g/dL RDW Std Deviation (36.4-46.3) fL RDW Coeff of Erin (11.5-14.5) % Plt Count (130-400) K/uL MPV (7.4-10.4) fL Immature Gran % (Auto) % Neut % (Auto) % Lymph % (Auto) % [place] % (Auto) % Eos % (Auto) % Baso % (Auto) % Neut # (Auto) (1.4-6.5) K/uL Lymph # (Auto) (1.2-3.4) K/uL [place] # (Auto) (0.11-0.59) K/uL Eos # (Auto) (0-0.5) K/uL Baso # (Auto) (0-0.2) K/uL Immature Gran # (Auto) (0.00-0.02) K/uL PT (9.0-12.0) Seconds INR (0.9-1.1) APTT (21.0-31.0) Seconds PTT Ratio Sodium (136-145) mmol/L Potassium (3.5-5.1) mmol/L Chloride (98-107) mmol/L Carbon Dioxide (21-32) mmol/L Anion Gap (3-11) BUN (7-18) mg/dl Creatinine (0.6-1.2) mg/dl Est Cr Clr Drug Dosing ml/min Est GFR ( Amer) ml/min Est GFR (Non-Af Amer) ml/min BUN/Creatinine Ratio (10-20) Glucose (70-99) mg/dl Calcium (8.5-10.1) mg/dl Total Bilirubin (0.2-1) mg/dl AST (15-37) U/L ALT (12-78) U/L Alkaline Phosphatase (45-117) U/L Troponin I (0-0.045) ng/ml Total Protein (6.4-8.2) gm/dl Albumin (3.4-5.0) gm/dl Globulin (2.5-4.0) gm/dl Albumin/Globulin Ratio (0.9-2) Lipase (73-393) U/L COVID-19 Eval Order Covid19 at [facility] SARS-CoV-2 (PCR) NEGATIVE (Negative) Administered Medications Discontinued Medications Sodium Chloride (Nss) 500 mls @ 999 mls/hr IV .Q31M STA Stop: 01/01/21 11:24 Last Infusion: 01/01/21 11:49 Dose: 0 mls/hr Documented by: [id number] Admin: 01/01/21 11:12 Dose: 999 mls/hr Documented by: [id number] Ioversol (Optiray 320 125ml) 120 ml IV ONCE ONE Stop: 01/01/21 13:27 Last Admin: 01/01/21 13:27 Dose: 120 ml Documented by: [id number] Imaging Data Radiologist's Impression: Chest X-Ray 01/01/21 10:54 XR chest 1V portable CLINICAL HISTORY: Chest Pain COMPARISON STUDY: Chest CT September 04, 2020. FINDINGS: Lung volumes are normal. Lungs are clear. There is no pneumothorax or pleural effusion. Cardiac size is normal. Mediastinal contours are normal. There is no evidence for pulmonary edema. Note is made of a lucency projecting over the lower mediastinum and upper abdomen. IMPRESSION: 1. Unusual lucency projecting over the lower mediastinum and upper abdomen. This probably reflects intraluminal gas however pneumoperitoneum would be difficult to exclude. If abdominal pain, a CT is recommended. 2. No acute cardiopulmonary findings. ACT 112: Negative or not required by law. Electronically signed by: Brian Barton M.D. 01/01/2021 11:08 AM Abdomen/Pelvis CT 01/01/21 12:[address] WITH IV CONTRAST CT DOSE: HISTORY: Abnormal chest x-ray. ? Pneumoperitoneum TECHNIQUE: Multiaxial CT images of the abdomen and pelvis were performed following the use of intravenous contrast. A dose lowering technique was utilized adhering to the principles of ALARA. COMPARISON STUDY: Chest x-ray 01/01/2021. Chest CT 09/04/2020. FINDINGS: Please refer the same day chest CT for further evaluation of the lung bases. There is no pneumoperitoneum. No pneumatosis. No suspicious lytic or blastic osseous lesions. There are fused scattered hypodense lesions within the liver with the largest in the right hepatic lobe measuring 1.9 cm. These likely represent cysts. Prior cholecystectomy. Nonenhanced left portal vein consistent with thrombus. The main and right portal veins are patent. The pancreas, spleen, adrenal glands, and kidneys are unremarkable. No hydronephrosis. Thickening at the gastroesophageal junction consistent with prior Dayanara fundoplication. This remains unchanged. Normal caliber abdominal aorta. No retroperitoneal lymphadenopathy. Normal bladder. The uterus is surgically absent. There is a 6.2 cm left ovarian cyst. This could be pathologic in a postmenopausal female. Colonic diverticulosis. No evidence for acute diverticulitis. No evidence for bowel obstruction. Normal appendix. A focus of fat necrosis noted within the left upper quadrant, unchanged. IMPRESSION: 1. Left portal vein thrombosis. This is age indeterminate but favors acute th rombus. The main and right portal veins are patent. 2. No acute bowel wall thickening or obstruction. 3. Postoperative changes consistent with prior Dayanara fundoplication. 4. Colonic diverticulosis. No evidence for acute diverticulitis. 5. A 6.2 cm left ovarian cyst. This could be pathologic in a postmenopausal female. Follow-up nonemergent gynecologic consultation recommended. ACT 112: Positive. There are findings on this exam that require communication between the performing entity and the patient following Patient Test Result Information Act ([place] Act 112) guidelines. Electronically signed by: Afshin Hummel M.D. 01/01/2021 2:11 PM Chest CTA 01/01/21 12:44 CT ANGIOGRAPHY OF THE CHEST, PULMONARY EMBOLUS PROTOCOL CLINICAL HISTORY: Shortness of breath. COMPARISON STUDY: Chest CT September 04, 2020. Chest radiograph performed earlier today. TECHNIQUE: Following IV administration of 120 mL of Optiray, helical axial images of the chest were obtained utilizing the pulmonary embolus protocol. Maximal intensity projections and sagittal and coronal reformats were viewed on an independent 3D workstation. IV contrast was administered without complication. Automated exposure control was utilized for the study. A dose lowering technique was utilized adhering to the principles of ALARA. CT DOSE: 1348.19 mGy.cm FINDINGS: No pulmonary emboli are identified. There is no thoracic aortic dissection. Mild cardiomegaly is noted. There is no pericardial effusion. No enlarged thoracic lymph nodes are present. The central airways are patent. No pneumothorax or pleural effusion is present. There is no consolidation to suggest pneumonia. Mild subpleural opacities reflect atelectasis. The abdomen and pelvis will be reported separately. 2.9 cm focus of fat necrosis within the left upper quadrant is similar to prior CT. There are multiple suspected hepatic cysts. IMPRESSION: 1. No pulmonary emboli identified. 2. No acute process within the chest. ACT 112: Negative or not required by law. Electronically signed by: Brian Barton M.D. 01/01/2021 1:41 PM Discharge Plan Visit Data Chief Complaint: Chest Pain Stated Complaint: CHEST PAIN ED Provider: Heber Whitaker Discharge Problem: Chest pain, Abnormal ECG, Portal vein thrombosis Patient Disposition: Admitted As Inpatient Discharge Instructions Interventions: ED Discharge Assessment Last Done: 01/01/21 13:45 Discharge Problem: Chest pain Qualifiers: Chest pain type: unspecified Qualified Code(s): R07.9 - Chest pain, unspecified
[2021-01-01 11:08] LABS: Basophils # (auto) 0.03 K/uL (0-0.2); Basophils % (auto) 0.4 %; Eosinophils # (auto) 0.15 K/uL (0-0.5); Eosinophils % (auto) 1.8 %; Hematocrit (blood only) 41.4 % (37-47); Hemoglobin 13.7 g/dL (12.0-16.0); Immature Granulocytes # (auto) 0.01 K/uL (0.00-0.02); Immature Granulocytes % (auto) 0.1 %; Lymphocytes # (auto) 1.84 K/uL (1.2-3.4); Lymphocytes % (auto) 22.4 %; Mean Corpuscular Hemoglobin 29.3 pg (25-34); Mean Corpuscular Hgb Conc 33.1 g/dL (32-36); Mean Corpuscular Volume 88.7 fL (80-100); Mean Platelet Volume 11.6 fL (7.4-10.4); Monocytes # (auto) 0.48 K/uL (0.11-0.59); Monocytes % (auto) 5.8 %; Neutrophils % (auto) 69.5 %; Platelet Count 247 K/uL (130-400); RDW Coefficient of Variation 14.1 % (11.5-14.5); RDW Standard Deviation 45.9 fL (36.4-46.3); Red Blood Count 4.67 M/uL (4.2-5.4); White Blood Count 8.21 K/uL (4.8-10.8)
--- NOTE | 2021-01-01 11:10 | XRay Report ---
XR chest 1V portable CLINICAL HISTORY: Chest Pain COMPARISON STUDY: Chest CT September 04, 2020. FINDINGS: Lung volumes are normal. Lungs are clear. There is no pneumothorax or pleural effusion. Car diac size is normal. Mediastinal contours are normal. There is no evidence for pulmonary edema. Note is made of a lucency projecting over the lower mediastinum and upper abdomen. IMPRESSION: 1. Unusual lucency projecting over the lower mediastinum and upper abdomen. This probably reflects in traluminal gas however pneumoperitoneum would be difficult to exclude. If abdominal pain, a CT is rec ommended. 2. No acute cardiopulmonary findings. ACT 112: Negative or not required by law. Electronically signed by: Brian Barton M.D. 01/01/2021 11:08 AM
[2021-01-01 11:20] LABS: Partial Thromboplastin Ratio 0.9; Partial Thromboplastin Time 23.1 Seconds (21.0-31.0); Prothrombin Time 10.2 Seconds (9.0-12.0)
[2021-01-01 11:27] LABS: Alanine Aminotransferase 34 U/L (12-78); Albumin Level 3.6 gm/dl (3.4-5.0); Aspartate Aminotransferase 18 U/L (15-37); BUN Creatinine Ratio 13.3 (10-20); Blood Urea Nitrogen 11 mg/dl (7-18); Calcium 9.1 mg/dl (8.5-10.1); Carbon Dioxide 28 mmol/L (21-32); Chloride 110 mmol/L (98-107); Creatinine Clr Calc Pharmacy 74.5 ml/min; Est GFR (African American) 80.5 ml/min; Est GFR (Non-African American) 69.4 ml/min; Glucose 106 mg/dl (70-99); Lipase 161 U/L (73-393); Potassium 3.9 mmol/L (3.5-5.1); Sodium 140 mmol/L (136-145)
[2021-01-01 11:31] LABS: Albumin Globulin Ratio 1.1 (0.9-2); Alkaline Phosphatase 81 U/L (45-117); Bilirubin,Total 0.7 mg/dl (0.2-1); Globulin 3.4 gm/dl (2.5-4.0); Troponin I < 0.015 ng/ml (0-0.045)
--- NOTE | 2021-01-01 12:10 | History & Physical Report ---
Date of Service January 01, 2021 Assessment & Plan (1) Chest pain: Quite atypical in nature for cardiac type chest pain Given history of DVT, need to rule out PE-CT angiogram the chest ordered She does have some tenderness to palpation of that area as well, but this does not seem likely to cause such significant diaphoresis or nausea with dry heaves. Could be GI in nature as well Was relieved somewhat with nitroglycerin which does not necessarily point towards cardiac but could also be GI or muscle spasm -Admit to telemetry -Serial troponin, daily ECG -Echocardiogram to look for wall motion abnormalities -Nitroglycerin as needed for chest pain -Given risk factors of hypertension, positive family history, and age, could consider cardiac stress test in the morning if rules out overnight -Given possible pneumoperitoneum versus intraluminal gas seen on chest x-ray, getting CT of abdomen/pelvis with IV contrast now -Keep n.p.o. for now -Start IV fluids while n.p.o. -Check lipid panel in the morning -Continue home aspirin and atorvastatin -Start trial of PPI in case GI related (2) Gastroesophageal reflux disease: Has a history of Schatzki's ring, but I see that she is not on antacids at home -Start Protonix as above -If rules out for cardiac causes or PE, consider outpatient follow-up with GI- she follows with shante MAGALLANES (3) Hyperlipidemia: Continue statin Check lipid panel (4) Hypertension: Blood pressures are mildly elevated upon admission Continue home telmisartan No room to add beta-autumn given sinus bradycardia (5) IBS (irritable bowel syndrome): Lifelong issues Improving now with cholestyramine status post cholecystectomy (6) Osteoporosis: Hold home calcium and vitamin D supplements for now (7) Situational anxiety: Recently diagnosed, has been very stressed taking care of elderly parents in her 90s+ her sister with Parkinson's disease Continue sertraline which was started 1 week ago Continue lorazepam as needed (8) Vitamin D deficiency: Holding home supplements while n.p.o. (9) Impaired fasting glucose: Check hemoglobin A1c in the morning No need for insulin or Accu-Cheks (10) Hypothyroidism: TSH normal in 02/2020 Continue home levothyroxine (11) Hx of hepatitis C: Apparently has been treated for this in the past and is resolved (12) Hx of deep venous thrombosis: History of right lower extremity DVT provoked by immobility and right sided tibial plateau fracture in 2017 Was treated with Xarelto for several months and now remains on baby aspirin once daily Checking CT angiogram chest as above for PE Start Lovenox 40 mg SQ once daily while hospitalized plus SCDs No clinical evidence of DVT on examination at this time Disposition-bring in on observation to PCU Full code History of Present Illness Chief Complaint: Chest pain Primary Care Provider: Steven Monroe MD This patient is a 70-year-old female with history of HTN, hyperlipidemia, DVT provoked by right tibial plateau fracture, HCV, hypothyroidism, irritable bowel syndrome, impaired fasting glucose, migraines, GERD and Schatzki's ring, depres derick with anxiety, and chronic diarrhea related to cholecystectomy, who presents to the ER with 1 to 2 weeks of left-sided chest pain coming and going, not necessarily related to exertion. It had been very mild in nature until this morning after having her coffee, she had severe sharp stabbing left-sided chest pain that was associated with nausea and significant diaphoresis. She has never had anything like this before. EMS gave her aspirin nitroglycerin which caused her pain to go away. In the ER, her troponin was negative, however her ECG showed some nonspecific T wave flattening in inferior leads and some T wave inversions in V2 and V3 and V4. This was changed from previous. She does report a history of DVT in the right lower extremity after tibial plateau fracture about 4 years ago and took Xarelto for several months afterwards followed by daily aspirin to the present day. She has not noticed any lower extremity swelling. She did have a coughing spell earlier today that caused her to have some epigastric and left upper quadrant pain as well. In the ER, chest x-ray showed possible lucency under the diaphragm and could not exclude pneumoperitoneum, but x-ray was otherwise normal. CT angiogram of the chest and CT of the abdomen/pelvis with IV contrast were ordered at the time of admission and pending. She will be brought in to rule out acute coronary syndrome or unstable angina as well as to exclude PE and work-up for possible pneumoperitoneum as above. Allergies Allergy/AdvReac Type Severity Reaction Status Date / Time hydrocodone Allergy Mild Rash Verified 12/27/20 14:09 nickel Allergy Mild RASH Verified 12/27/20 14:09 paroxetine [From Paxil] AdvReac Intermediate sleepiness Verified 12/27/20 14:09 acetaminophen [From Vicodin] AdvReac Mild Gastrointestinal Verified 12/27/20 14:09 Upset Antihistamines - Alkylamine AdvReac Mild Jitters Verified 12/27/20 14:09 azithromycin [From Zithromax] AdvReac Mild Gastrointestinal Verified 12/27/20 14:09 Upset citalopram [From Celexa] AdvReac Mild Gastrointestinal Verified 12/27/20 14:09 Upset Home Medications Medication Instructions Recorded Confirmed Type aspirin 81 mg tablet,delayed 81 mg PO QPM tab 01/02/20 01/01/21 History release Citracal Plus Bone Density 1 tab PO QPM 08/28/20 01/01/21 History Probichew 1 tab PO QPM 08/28/20 01/01/21 History atorvastatin 20 mg PO QPM 08/28/20 01/01/21 History cholecalciferol (vitamin D3) 4,000 unit PO QPM 08/28/20 01/01/21 History omega-3 fatty acids 1,000 mg PO QPM 08/28/20 01/01/21 History telmisartan 40 mg PO QAM 08/28/20 01/01/21 History ondansetron HCl 4 mg tablet 4 mg PO Q8H PRN #30 tab 10/01/20 01/01/21 Rx levothyroxine 75 mcg tablet 75 mcg PO QAM #90 tab 10/22/20 01/01/21 Rx cholestyramine (with sugar) 4 gram 4 g PO DAILY #378 g 12/24/20 01/01/21 Rx oral powder lorazepam 0.5 mg tablet 0.5 mg PO Q6H PRN #60 tab 12/27/20 01/01/21 Rx sertraline 50 mg tablet 50 mg PO DAILY #30 tab 12/27/20 01/01/21 Rx Past Med/Surg History Medical History Depression GERD (gastroesophageal reflux disease) worsening 2/2 hiatal hernia (reason for upcoming surgery) History of COVID-19 diagnosed 08/21/20 @ [facility]--had a headache and scratchy throat week before testing positive--states on 08/28/20 no symptoms History of Meniere's disease History of skin cancer s/p moh's Hx of deep venous thrombosis RLE DVT 2016 s/p right leg fracture/immobility- AC x 12 weeks; no issues since Hx of hepatitis C ? related to rhogam injections after childbirth; s/p treatment ("cleared") Hyperlipidemia Hypertension Hypothyroidism IBS (irritable bowel syndrome) Impaired fasting glucose Metabolic syndrome Migraine Mitral valve prolapse Remotely told by doctor 25 years ago- no further details/recent echo No murmur noted on PCP physical exams Obesity Schatzki's ring s/p dilation Situational anxiety Surgical History H/O exploratory laparotomy (09/26/20) Diagnostic Laparoscopy, Enterolysis; Repair of Umbilical Hernia Laparoscopic Cholecystectomy Dr. Sage 09/26/2020 H/O umbilical hernia repair (09/26/20) Diagnostic Laparoscopy, Enterolysis; Repair of Umbilical Hernia Laparoscopic Cholecystectomy Dr. Sage 09/26/2020 History of bilateral tubal ligation History of breast biopsy History of breast surgery right breast mamillary glands removed History of cardiac cath x2; most recent 2007= no stents History of colonoscopy 10/18/18: MAC sedation at [facility] History of esophagogastroduodenoscopy (EGD) History of hysterectomy History of liver biopsy History of Mohs micrographic surgery for skin cancer x2 History of removal of cyst right breast History of tonsillectomy and adenoidectomy History of tooth extraction all upper, some lower teeth extractions Hx laparoscopic cholecystectomy (09/26/20) Diagnostic Laparoscopy, Enterolysis; Repair of Umbilical Hernia Laparoscopic Cholecystectomy Dr. Sage 09/26/2020 Status post correction of deviated nasal septum Status post Dayanara fundoplication (02/15/19) Robotic Laparoscopic T[place]et partial Fundoplication , Hiatal Hernia with Patch with Esophagogastroduodenoscopy Dr. Reyna 02-15-19 Family History Father Heart disease Diverticulitis Hx of CABG, Onset Age: 63 Mother History of PTCA 1, Onset Age: 60 Other No family history of adverse response to anesthesia Denies family history of Ovarian cancer Prostate cancer Breast cancer Lung cancer Colorectal cancer Social History (Updated 01/01/21 @ 13:05 by Sadaf Croft MD) Smoking Status: Former smoker Tobacco Type: Cigarettes Age Quit Using Tobacco: 40; Second Hand Exposure: No; Hx Alcohol Use: No Hx Substance Use: No Preferred Language: Armenian Communication Ability: Effective Visual Impairment: No Limitations Hearing Ability: Normal Endoscopy Specialty Technician Required: No Beliefs That Will Affect Care: None marital status: Current Living Situation: Spouse current occupational status: retired Feels Safe at Home: Yes Childhood Exposure to Second-Hand Smoke: No Diet Comment: regular caffeine: Yes during the past year weight has: decreased > 10 lbs Dental Care, Regularly: Yes Physical Activity Frequency: Daily Physical Activity Frequency Comment: walk Seatbelt Use: always Assistive Devices: Denture - Upper and Glasses Review of Systems Review of Systems: All systems reviewed & are unremarkable except as noted in HPI & below Denies fevers or chills, no coughing, no blood in stool. Had recent loose stools status post cholecystectomy which is now much improved with starting cholestyramine. No urinary issues. Physical Exam Constitutional: WD/WN, vitals as above Eyes: PERRL, conjunctivae normal, anicteric sclerae ENMT: external ear and nose normal, oropharynx normal Neck: trachea midline, no thyromegaly Respiratory: normal respiratory effort, lungs clear to auscultation Cardiovascular: RRR, no murmur, no edema Vessels: dorsalis pedis pulses present; no JVD Extremities: no calf tenderness Chest (Breasts): Chest: normal inspection of chest Additional Comments: Positive tenderness to palpation over left chest wall at site of pain, no mass palpated Gastrointestinal (Abdomen): Inspection/Auscultation: normal bowel sounds; + abdomen abnormal to inspection (Multiple small surgical incision scars) and abdomen not distended Percussion/Palpation: + abdomen tender (Mild in LUQ without guarding or rebound tenderness) and abdomen soft; no guarding, abdomen not rigid and no hepatosplenomegaly Musculoskeletal: Extremities: extremities normal to inspection; no cyanosis and no clubbing Skin: no rashes, warm and dry Neurologic: moves all extremities and awake; no focal motor deficits Psychiatric: A+Ox3, euthymic affect Lymphatic: no lymphedema Results & Data Results & Data ([facility]) Vital Signs (Past 12 Hours) Vital Signs Temp Pulse Resp BP Pulse Ox 01/01/21 10:50 36.8 C 69 16 136/92 96 Laboratory Results 0601/01/21 01/01/21 Range/Units 11:20 11:20 10:55 WBC (4.8-10.8) K/uL RBC (4.2-5.4) M/uL Hgb (12.0-16.0) g/dL Hct (37-47) % MCV (80-100) fL MCH (25-34) pg MCHC (32-36) g/dL RDW Std Deviation (36.4-46.3) fL RDW Coeff of Erin (11.5-14.5) % Plt Count (130-400) K/uL MPV (7.4-10.4) fL Immature Gran % (Auto) % Neut % (Auto) % Lymph % (Auto) % [place] % (Auto) % Eos % (Auto) % Baso % (Auto) % Neut # (Auto) (1.4-6.5) K/uL Lymph # (Auto) (1.2-3.4) K/uL [place] # (Auto) (0.11-0.59) K/uL Eos # (Auto) (0-0.5) K/uL Baso # (Auto) (0-0.2) K/uL Immature Gran # (Auto) (0.00-0.02) K/uL PT (9.0-12.0) Seconds INR (0.9-1.1) APTT (21.0-31.0) Seconds PTT Ratio Sodium 140 (136-145) mmol/L Potassium 3.9 (3.5-5.1) mmol/L Chloride 110 H (98-107) mmol/L Carbon Dioxide 28 (21-32) mmol/L Anion Gap 2.0 L (3-11) BUN 11 (7-18) mg/dl Creatinine 0.85 (0.6-1.2) mg/dl Est Cr Clr Drug Dosing 74.5 ml/min Est GFR ( Amer) 80.5 ml/min Est GFR (Non-Af Amer) 69.4 ml/min BUN/Creatinine Ratio 13.3 (10-20) Glucose 106 H (70-99) mg/dl Calcium 9.1 (8.5-10.1) mg/dl Total Bilirubin 0.7 (0.2-1) mg/dl AST 18 (15-37) U/L ALT 34 (12-78) U/L Alkaline Phosphatase 81 (45-117) U/L Troponin I < 0.015 (0-0.045) ng/ml Total Protein 7.0 (6.4-8.2) gm/dl Albumin 3.6 (3.4-5.0) gm/dl Globulin 3.4 (2.5-4.0) gm/dl Albumin/Globulin Ratio 1.1 (0.9-2) Lipase 161 (73-393) U/L COVID-19 Eval Order Covid19 at [facility] SARS-CoV-2 (PCR) Pending 01/01/21 01/01/21 Range/Units 10:55 10:55 WBC 8.21 (4.8-10.8) K/uL RBC 4.67 (4.2-5.4) M/uL Hgb 13.7 (12.0-16.0) g/dL Hct 41.4 (37-47) % MCV 88.7 (80-100) fL MCH 29.3 (25-34) pg MCHC 33.1 (32-36) g/dL RDW Std Deviation 45.9 (36.4-46.3) fL RDW Coeff of Erin 14.1 (11.5-14.5) % Plt Count 247 (130-400) K/uL MPV 11.6 H (7.4-10.4) fL Immature Gran % (Auto) 0.1 % Neut % (Auto) 69.5 % Lymph % (Auto) 22.4 % [place] % (Auto) 5.8 % Eos % (Auto) 1.8 % Baso % (Auto) 0.4 % Neut # (Auto) 5.70 (1.4-6.5) K/uL Lymph # (Auto) 1.84 (1.2-3.4) K/uL [place] # (Auto) 0.48 (0.11-0.59) K/uL Eos # (Auto) 0.15 (0-0.5) K/uL Baso # (Auto) 0.03 (0-0.2) K/uL Immature Gran # (Auto) 0.01 (0.00-0.02) K/uL PT 10.2 (9.0-12.0) Seconds INR 1.0 (0.9-1.1) APTT 23.1 (21.0-31.0) Seconds PTT Ratio 0.9 Sodium (136-145) mmol/L Potassium (3.5-5.1) mmol/L Chloride (98-107) mmol/L Carbon Dioxide (21-32) mmol/L Anion Gap (3-11) BUN (7-18) mg/dl Creatinine (0.6-1.2) mg/dl Est Cr Clr Drug Dosing ml/min Est GFR ( Amer) ml/min Est GFR (Non-Af Amer) ml/min BUN/Creatinine Ratio (10-20) Glucose (70-99) mg/dl Calcium (8.5-10.1) mg/dl Total Bilirubin (0.2-1) mg/dl AST (15-37) U/L ALT (12-78) U/L Alkaline Phosphatase (45-117) U/L Troponin I (0-0.045) ng/ml Total Protein (6.4-8.2) gm/dl Albumin (3.4-5.0) gm/dl Globulin (2.5-4.0) gm/dl Albumin/Globulin Ratio (0.9-2) Lipase (73-393) U/L COVID-19 Eval Order SARS-CoV-2 (PCR) Diagnostic Findings Chest X-Ray 01/01/21 10:54 XR chest 1V portable CLINICAL HISTORY: Chest Pain COMPARISON STUDY: Chest CT September 04, 2020. FINDINGS: Lung volumes are normal. Lungs are clear. There is no pneumothorax or pleural effusion. Cardiac size is normal. Mediastinal contours are normal. There is no evidence for pulmonary edema. Note is made of a lucency projecting over the lower mediastinum and upper abdomen. IMPRESSION: 1. Unusual lucency projecting over the lower mediastinum and upper abdomen. This probably reflects intraluminal gas however pneumoperitoneum would be difficult to exclude. If abdominal pain, a CT is recommended. 2. No acute cardiopulmonary findings. ACT 112: Negative or not required by law. Electronically signed by: Brian Barton M.D. 01/01/2021 11:08 AM Code Status & VTE Plan Code Status Full code VTE Prophylaxis Plan VTE Prophylaxis will be ordered: Yes PG Care Time/CCT Total # of Minutes Spent Total Time Spent with Patient: Total time spent is greater than 50% in coordination of care (as documented) at patient's floor/unit and/or counseling patient: Coding Level of Care Code 95699 OBS Care - Level 3 Diagnoses Chest pain R07.9 Gastroesophageal reflux disease K21.00 Esophagitis bleeding: without hemorrhage Esophagitis presence: with esophagitis Hyperlipidemia E78.00; E78.0 Hyperlipidemia type: pure hypercholesterolemia Hypertension I10 IBS (irritable bowel syndrome) K58.9 Irritable bowel syndrome type: unspecified Osteoporosis M81.0 Situational anxiety F41.8 Vitamin D deficiency E55.9 Impaired fasting glucose R73.01 Hypothyroidism E03.9 Hx of hepatitis C Z86.19 Hx of deep venous thrombosis Z86.718 (1) Hyperlipidemia Hyperlipidemia type: pure hypercholesterolemia Qualified Code(s): E78.00 - Pure hypercholesterolemia, unspecified; E78.0 - Pure hypercholesterolemia (2) Gastroesophageal reflux disease Esophagitis bleeding: without hemorrhage Esophagitis presence: with esophagitis Qualified Code(s): K21.00 - Gastro-esophageal reflux disease with esophagitis, without bleeding (3) IBS (irritable bowel syndrome) Irritable bowel syndrome type: unspecified Qualified Code(s): K58.9 - Irritable bowel syndrome without diarrhea
[2021-01-01] MEDS ORDERED: OPTIRAY 320 125ml IV ONE (13:26)
--- NOTE | 2021-01-01 13:43 | CT Scan Report ---
CT ANGIOGRAPHY OF THE CHEST, PULMONARY EMBOLUS PROTOCOL CLINICAL HISTORY: Shortness of breath. COMPARISON STUDY: Chest CT September 04, 2020. Chest radiograph performed earlier today. TECHNIQUE: Following IV administration of 120 mL of Optiray, helical axial images of the chest were o btained utilizing the pulmonary embolus protocol. Maximal intensity projections and sagittal and cor onal reformats were viewed on an independent 3D workstation. IV contrast was administered without co mplication. Automated exposure control was utilized for the study. A dose lowering technique was ut ilized adhering to the principles of ALARA. CT DOSE: 1348.19 mGy.cm FINDINGS: No pulmonary emboli are identified. There is no thoracic aortic dissection. Mild cardiomeg champ is noted. There is no pericardial effusion. No enlarged thoracic lymph nodes are present. The narda tral airways are patent. No pneumothorax or pleural effusion is present. There is no consolidation to suggest pneumonia. Mild subpleural opacities reflect atelectasis. The abdomen and pelvis will be rep orted separately. 2.9 cm focus of fat necrosis within the left upper quadrant is similar to prior CT. There are multiple suspected hepatic cysts. IMPRESSION: 1. No pulmonary emboli identified. 2. No acute process within the chest. ACT 112: Negative or not required by law. Electronically signed by: Brian Barton M.D. 01/01/2021 1:41 PM
--- NOTE | 2021-01-01 14:13 | CT Scan Report ---
ABDOMEN AND PELVIS CT WITH IV CONTRAST CT DOSE: HISTORY: Abnormal chest x-ray. ? Pneumoperitoneum TECHNIQUE: Multiaxial CT images of the abdomen and pelvis were performed following the use of intrave nous contrast. A dose lowering technique was utilized adhering to the principles of ALARA. COMPARISON STUDY: Chest x-ray 01/01/2021. Chest CT 09/04/2020. FINDINGS: Please refer the same day chest CT for further evaluation of the lung bases. There is no pn eumoperitoneum. No pneumatosis. No suspicious lytic or blastic osseous lesions. There are fused scatt ered hypodense lesions within the liver with the largest in the right hepatic lobe measuring 1.9 cm. These likely represent cysts. Prior cholecystectomy. Nonenhanced left portal vein consistent with thr ombus. The main and right portal veins are patent. The pancreas, spleen, adrenal glands, and kidneys are unremarkable. No hydronephrosis. Thickening at the gastroesophageal junction consistent with prio r Dayanara fundoplication. This remains unchanged. Normal caliber abdominal aorta. No retroperitoneal l ymphadenopathy. Normal bladder. The uterus is surgically absent. There is a 6.2 cm left ovarian cyst. This could be pathologic in a postmenopausal female. Colonic diverticulosis. No evidence for acute d iverticulitis. No evidence for bowel obstruction. Normal appendix. A focus of fat necrosis noted with in the left upper quadrant, unchanged. IMPRESSION: 1. Left portal vein thrombosis. This is age indeterminate but favors acute thrombus. The main and rig ht portal veins are patent. 2. No acute bowel wall thickening or obstruction. 3. Postoperative changes consistent with prior Dayanara fundoplication. 4. Colonic diverticulosis. No evidence for acute diverticulitis. 5. A 6.2 cm left ovarian cyst. This could be pathologic in a postmenopausal female. [facility]. ACT 112: Positive. There are findings on this exam that require communication between the performing entity and the patient following Patient Test Result Information Act ([place] Act 112) guidelines. Electronically signed by: Afshin Hummel M.D. 01/01/2021 2:11 PM
[2021-01-01] MEDS ORDERED: NITROGLYCERIN SL 0.4 MG/TAB TAB SL PRN (14:58)
[2021-01-01] MEDS ORDERED: ALUMINUM/MAGNESIUM SUSP 30 ML UDC PO PRN (14:58)
[2021-01-01] MEDS ORDERED: LORazepam 0.5 MG TAB PO PRN (14:58)
[2021-01-01] MEDS ORDERED: SODIUM CHLORIDE 0.9% 1000ML 1,000 ML IV SCH (14:58)
[2021-01-01] MEDS ORDERED: ONDANSETRON INJ 2 MG/ML 2 ML VIAL IV PRN (14:58)
[2021-01-01] MEDS ORDERED: ENOXAPARIN INJ 40 MG/0.4 ML SYR SQ SCH (14:58)
[2021-01-01] MEDS ORDERED: Heparin IV Adult Wt-Based Standard *NO* Bolus Protocol IV SCH (15:02)
[2021-01-01] MEDS: PANTOprazole 40 MG TAB PO SCH (15:58)
[2021-01-01] MEDS: HEPARIN SODIUM/DEXTROSE 25,000 UNITS/500 ML BAG IV SCH (15:59)
--- NOTE | 2021-01-01 16:13 | OB/GYN Consultation ---
Date of Consultation January 01, 2021 Assessment & Plan (1) Pelvic mass: Exam done with nursing at bedside. This seems like an incidental finding on her CT scan her ultrasound has already been ordered by her primary team and we will wait for results of this I have also entered a Ca 125 order to help triage to the likelihood of malignancy with this. If this is a simple cyst and a low Ca1 25 this could be dealt with as an outpatient\\will await ultrasound reports and discuss further We discussed that any mass in a postmenopausal woman at this stage is abnormal but that if it was a simple cyst it would be highly likely to be benign. Many times these can be followed up or dealt with again as an outpatient History of Present Illness Attending Physician: Sadaf Croft MD Consultation provided for patient who is known to me although I have not seen her in few years Katerina is a 7-year-old woman with a past history of a hysterectomy 41 years ago she has both ovaries she is being assessed here for chest pain and apparently has a portal vein thrombosis she has had some recent surgeries including a gallbladder surgery in September and also a Peter fundoplication several years ago Patient is not currently having any pelvic pain pelvic fullness or vaginal bleeding she has no family history of ovarian cancer no she has not had any significant 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 recently she did have a breast mass assessed with benign biopsy in the past in our office Allergies Allergy/AdvReac Type Severity Reaction Status Date / Time hydrocodone Allergy Mild Rash Verified 12/27/20 14:09 nickel Allergy Mild RASH Verified 12/27/20 14:09 paroxetine [From Paxil] AdvReac Intermediate sleepiness Verified 12/27/20 14:09 acetaminophen [From Vicodin] AdvReac Mild Gastrointestinal Verified 12/27/20 14:09 Upset Antihistamines - Alkylamine AdvReac Mild Jitters Verified 12/27/20 14:09 azithromycin [From Zithromax] AdvReac Mild Gastrointestinal Verified 12/27/20 14:09 Upset citalopram [From Celexa] AdvReac Mild Gastrointestinal Verified 12/27/20 14:09 Upset Home Medications Medication Instructions Recorded Confirmed Type aspirin 81 mg tablet,delayed 81 mg PO QPM tab 01/02/20 01/01/21 History release Citracal Plus Bone Density 1 tab PO QPM 08/28/20 01/01/21 History Probichew 1 tab PO QPM 08/28/20 01/01/21 History atorvastatin 20 mg PO QPM 08/28/20 01/01/21 History cholecalciferol (vitamin D3) 4,000 unit PO QPM 08/28/20 01/01/21 History omega-3 fatty acids 1,000 mg PO QPM 08/28/20 01/01/21 History telmisartan 40 mg PO QAM 08/28/20 01/01/21 History ondansetron HCl 4 mg tablet 4 mg PO Q8H PRN #30 tab 10/01/20 01/01/21 Rx levothyroxine 75 mcg tablet 75 mcg PO QAM #90 tab 10/22/20 01/01/21 Rx cholestyramine (with sugar) 4 gram 4 g PO DAILY #378 g 12/24/20 01/01/21 Rx oral powder lorazepam 0.5 mg tablet 0.5 mg PO Q6H PRN #60 tab 12/27/20 01/01/21 Rx sertraline 50 mg tablet 50 mg PO DAILY #30 tab 12/27/20 01/01/21 Rx Patient History Medical History Depression GERD (gastroesophageal reflux disease) worsening 2/2 hiatal hernia (reason for upcoming surgery) History of COVID-19 diagnosed 08/21/20 @ [facility]--had a headache and scratchy throat week before testing positive--states on 08/28/20 no symptoms History of Meniere's disease History of skin cancer s/p moh's Hx of deep venous thrombosis RLE DVT 2016 s/p right leg fracture/immobility- AC x 12 weeks; no issues since Hx of hepatitis C ? related to rhogam injections after childbirth; s/p treatment ("cleared") Hyperlipidemia Hypertension Hypothyroidism IBS (irritable bowel syndrome) Impaired fasting glucose Metabolic syndrome Migraine Mitral valve prolapse Remotely told by doctor 25 years ago- no further details/recent echo No murmur noted on PCP physical exams Obesity Schatzki's ring s/p dilation Situational anxiety Surgical History H/O exploratory laparotomy (09/26/20) Diagnostic Laparoscopy, Enterolysis; Repair of Umbilical Hernia Laparoscopic Cholecystectomy Dr. Sage 09/26/2020 H/O umbilical hernia repair (09/26/20) Diagnostic Laparoscopy, Enterolysis; Repair of Umbilical Hernia Laparoscopic Cholecystectomy Dr. Sage 09/26/2020 History of bilateral tubal ligation History of breast biopsy History of breast surgery right breast mamillary glands removed History of cardiac cath x2; most recent 2007= no stents History of colonoscopy 10/18/18: MAC sedation at [facility] History of esophagogastroduodenoscopy (EGD) History of hysterectomy History of liver biopsy History of Mohs micrographic surgery for skin cancer x2 History of removal of cyst right breast History of tonsillectomy and adenoidectomy History of tooth extraction all upper, some lower teeth extractions Hx laparoscopic cholecystectomy (09/26/20) Diagnostic Laparoscopy, Enterolysis; Repair of Umbilical Hernia Laparoscopic Cholecystectomy Dr. Sage 09/26/2020 Status post correction of deviated nasal septum Status post Dayanara fundoplication (02/15/19) Robotic Laparoscopic Toupet partial Fundoplication , Hiatal Hernia with Patch with Esophagogastroduodenoscopy Dr. Reyna 02-15-19 Family History Father Heart disease Diverticulitis Hx of CABG, Onset Age: 63 Mother History of PTCA 1, Onset Age: 60 Other No family history of adverse response to anesthesia Denies family history of Ovarian cancer Prostate cancer Breast cancer Lung cancer Colorectal cancer Social History (Updated 01/01/21 @ 13:05 by Sadaf Croft MD) Smoking Status: Former smoker Tobacco Type: Cigarettes Age Quit Using Tobacco: 40; Smoking End Date: 1989; Second Hand Exposure: No; Hx Alcohol Use: No Hx Substance Use: No Preferred Language: Albanian Communication Ability: Effective Visual Impairment: No Limitations Hearing Ability: Normal Building Service Worker Required: No Beliefs That Will Affect Care: None marital status: Current Living Situation: Spouse current occupational status: retired Other Information That Helps Us Care for You: No Feels Safe at Home: Yes Safety Concerns: Feels Safe At This Time Childhood Exposure to Second-Hand Smoke: No Diet Comment: regular caffeine: Yes during the past year weight has: decreased > 10 lbs Dental Care, Regularly: Yes Physical Activity Frequency: Daily Physical Activity Frequency Comment: walk Seatbelt Use: always Assistive Devices: None Physical Exam Genitourinary: no vaginal lesions, no adnexal mass (I do not appreciate an obvious mass although there is a fullness in the pel) Results & Data ([facility]) Vital Signs (Past 12 Hours) Vital Signs Temp Pulse Pulse Resp BP BP Pulse Ox 01/01/21 15:56 171/89 H 01/01/21 15:00 98.1 F 63 18 180/89 H 97 01/01/21 13:44 75 19 112/54 L 99 01/01/21 13:00 63 12 158/90 H 97 01/01/21 12:45 63 14 156/90 H 98 01/01/21 12:30 60 19 179/89 H 98 01/01/21 12:29 97 01/01/21 12:20 57 L 20 98 01/01/21 12:15 62 23 159/85 H 98 01/01/21 12:10 61 22 100 01/01/21 12:00 68 14 158/89 H 99 01/01/21 11:53 65 15 173/98 H 98 01/01/21 11:52 66 18 01/01/21 11:40 69 23 98 01/01/21 11:30 64 18 136/85 96 01/01/21 11:20 77 17 98 01/01/21 11:15 67 16 135/89 98 01/01/21 11:11 68 19 143/90 H 98 01/01/21 11:10 68 14 98 01/01/21 11:00 72 13 97 01/01/21 10:51 84 16 95 01/01/21 10:50 98.2 F 69 16 136/92 96 01/01/21 10:45 84 19 136/92 93 PG Care Time/CCT Total # of Minutes Spent Total Time Spent with Patient: Total time spent is greater than 50% in coordination of care (as documented) at patient's floor/unit and/or counseling patient: Coding Level of Care Code 01334 Office/OBS Consult Lvl 3 Diagnoses Pelvic mass R19.00
--- NOTE | 2021-01-01 19:17 | Ultrasound Report ---
ULTRASOUND OF THE PELVIS CLINICAL HISTORY: Follow-up left ovarian cyst. COMPARISON STUDY: Pelvic CT dated 01/01/2021. TECHNIQUE: Real-time, grayscale, and color flow sonography of the pelvis is performed both transabdom inally and endovaginally. Images are reviewed in the transverse and longitudinal planes. The endovagi nal examination is performed for better assessment of the ovaries and adnexa. FINDINGS: Uterus: The uterus is surgically absent Ovaries: The ovaries are normal in size and morphology. The right ovary measures 1.8 x 1.6 x 1.5 cm a nd the left ovary measures 5.9 x 4.4 x 4.9 cm. There is a 5.2 cm minimally complex cyst identified in the left ovary. This contains minimal internal debris. Nodular/soft tissue component is identified. There are no thick internal septations. A 0.9 cm cystic focus is noted in the right ovary. Normal Dop pler waveforms are shown within both ovaries. Pelvis: There is no free fluid in the cul-de-sac. No concerning adnexal lesion is seen. IMPRESSION: 1. Status post hysterectomy. 2. There is a 5.9 cm minimally complex cyst noted in the left ovary, which is an abnormal finding in a postmenopausal patient. No soft tissue/nodular component is identified. Nonemergent/outpatient foll ow-up with gynecology is recommended, with a precautionary follow-up ultrasound in 6 months time for reassessment. ACT 112: Positive. There are findings on this exam that require communication between the performing entity and the patient following Patient Test Result Information Act ([place] Act 112) guidelines. Electronically signed by: Jayson Nj M.D. 01/01/2021 7:16 PM
[2021-01-01] MEDS: ADVANCED PROBIOTIC 1250 MG CAPSULE PO SCH (20:53)
[2021-01-01] MEDS: ATORVASTATIN 20 MG TAB PO SCH (20:53)
[2021-01-01] MEDS: ASPIRIN 81 MG ECTAB PO SCH (20:53)
[2021-01-01 22:23] LABS: Partial Thromboplastin Ratio 2.1
[2021-01-01 22:31] LABS: Partial Thromboplastin Time 56.4 Seconds (21.0-31.0)
[2021-01-02 06:06] LABS: Basophils # (auto) 0.03 K/uL (0-0.2); Basophils % (auto) 0.5 %; Eosinophils # (auto) 0.12 K/uL (0-0.5); Eosinophils % (auto) 2.2 %; Hematocrit (blood only) 38.4 % (37-47); Hemoglobin 12.6 g/dL (12.0-16.0); Immature Granulocytes # (auto) 0.02 K/uL (0.00-0.02); Immature Granulocytes % (auto) 0.4 %; Lymphocytes # (auto) 2.49 K/uL (1.2-3.4); Lymphocytes % (auto) 44.6 %; Mean Corpuscular Hgb Conc 32.8 g/dL (32-36); Mean Corpuscular Volume 88.5 fL (80-100); Mean Platelet Volume 11.9 fL (7.4-10.4); Monocytes # (auto) 0.67 K/uL (0.11-0.59); Neutrophils # (auto) 2.25 K/uL (1.4-6.5); Neutrophils % (auto) 40.3 %; Platelet Count 216 K/uL (130-400); RDW Coefficient of Variation 14.1 % (11.5-14.5); RDW Standard Deviation 46.1 fL (36.4-46.3); Red Blood Count 4.34 M/uL (4.2-5.4); White Blood Count 5.58 K/uL (4.8-10.8)
[2021-01-02] MEDS: LEVOTHYROXINE SODIUM 75 MCG TABLET PO SCH (06:27)
[2021-01-02 06:44] LABS: BUN Creatinine Ratio 9.4 (10-20); Calcium 8.2 mg/dl (8.5-10.1); Est GFR (African American) 80.5 ml/min; Est GFR (Non-African American) 69.4 ml/min; Potassium 3.5 mmol/L (3.5-5.1)
[2021-01-02 07:04] LABS: Estimated Average Glucose 114 mg/dl; Hemoglobin A1C 5.6 % (4.5-5.6)
[2021-01-02 07:24] LABS: Partial Thromboplastin Ratio 3.1
[2021-01-02 07:27] LABS: Partial Thromboplastin Time 82.8 Seconds (21.0-31.0)
--- NOTE | 2021-01-02 08:17 | Gynecologic Progress Note ---
Date of Service January 02, 2021 Assessment & Plan Admission and Anticipated Discharge Date Admission Date: January 01, 2021 Subjective I spoke with the patient she is still asymptomatic from the cyst at this time. I reviewed the ultrasound with the patient it is a 6 cm largely simple cyst with no major solid or worrisome components her Ca1 25 is pending I discussed that this finding is likely benign but I would like follow-up in the office we will arrange for this once the patient is discharged I think with her current diagnosis surgery at this time would be not prudent if the cyst persists we would consider surgery as an outpatient Results & Data ([facility]) Vital Signs (Past 12 Hours) Vital Signs Temp Pulse Pulse Resp BP Pulse Ox 01/02/21 07:53 98.6 F 68 19 148/91 H 97 01/02/21 04:00 98.1 F 61 16 150/70 H 95 01/02/21 00:00 97.9 F 67 16 148/87 H 96 01/01/21 23:00 63 PG Care Time/CCT Total # of Minutes Spent Total Time Spent with Patient: Total time spent is greater than 50% in coordination of care (as documented) at patient's floor/unit and/or counseling patient: Coding Level of Care Code 46480 Office/Outpt Visit, Est
[2021-01-02] MEDS: HEPARIN SODIUM/DEXTROSE 25,000 UNITS/500 ML BAG IV SCH ×2 (08:34→19:29)
[2021-01-02] MEDS: ACETAMINOPHEN 325 MG TAB PO PRN ×2 (08:34→20:20)
[2021-01-02] MEDS: SERTRALINE HCL 50 MG TABLET PO SCH (08:35)
[2021-01-02] MEDS: TELMISARTAN 40 MG TAB PO SCH (08:35)
[2021-01-02] MEDS: PANTOprazole 40 MG TAB PO SCH (08:35)
--- NOTE | 2021-01-02 08:47 | XCELERA ---
[id number]
[2021-01-02] MEDS: CHOLESTYRAMINE LIGHT 4 GM PKT PO SCH (13:23)
--- NOTE | 2021-01-02 14:02 | Electrocardiogram Report ---
Test Reason : Blood Pressure : / mmHG Vent. Rate : 069 BPM Atrial Rate : 069 BPM P-R Int : 106 ms QRS Dur : 086 ms QT Int : 428 ms P-R-T Axes : 048 003 018 degrees QTc Int : 458 ms Poor data quality, interpretation may be adversely affected Sinus rhythm with short OH Nonspecific ST and T wave abnormality Abnormal ECG When compared with ECG of 28-SEP-2020 04:55, Nonspecific T wave abnormality now evident in Anterolateral leads Confirmed by Filippo Wilkes ([id number]) on 01/02/2021 2:01:49 PM Referred By: Confirmed By:Filippo Wilkes
[2021-01-02 14:53] LABS: Partial Thromboplastin Ratio 2.8
[2021-01-02 15:02] LABS: Partial Thromboplastin Time 74.1 Seconds (21.0-31.0)
--- NOTE | 2021-01-02 15:24 | Electrocardiogram Report ---
Test Reason : Blood Pressure : / mmHG Vent. Rate : 065 BPM Atrial Rate : 065 BPM P-R Int : 134 ms QRS Dur : 108 ms QT Int : 438 ms P-R-T Axes : 012 003 052 degrees QTc Int : 455 ms Poor data quality, interpretation may be adversely affected Normal sinus rhythm Nonspecific ST and T wave abnormality Abnormal ECG When compared with ECG of 01-JAN-2021 10:50, (unconfirmed) Nonspecific T wave abnormality no longer evident in Inferior leads Nonspecific T wave abnormality, improved in Anterior leads Confirmed by Filippo Wilkes ([id number]) on 01/02/2021 3:23:49 PM Referred By: REFERRED SELF Confirmed By:Filippo Wilkes
[2021-01-02] MEDS ORDERED: WARFARIN SOD 10 MG TAB PO ONE (15:25)
--- NOTE | 2021-01-02 15:28 | Hospitalist Progress Note ---
Date of Service January 02, 2021 Assessment & Plan (1) Portal vein thrombosis: Etiology is uncertain. Very odd case. No evidence of cirrhosis. No personal/family history of hypercoagulable state. Does have ovarian cyst on CT and this will need to be followed to ensure it is not early ovarian ca. Could be smoldering hypercoagulable state from her COVID in August? Other cause? Related in some fashion to her omental infarction which was in the LUQ?? d/c heparin drip. change to lovenox 100mg BID. start coumadin 10mg x 1 now. plan for lovenox/coumadin at d/c, perhaps tomorrow. need to provide lovenox teaching and check cost. would defer on DOAC at this time. she will need to be followed very carefully to determine etiology of this. will need 6 months minimum of Rx. check prothrombin gene, factor 5 leiden mutation, and antiphospholipid ab panel in am. other tests (protein C, S, etc - not accurate in the acute VTE setting) - will defer on those. (2) Hx of deep venous thrombosis: RLE - 2017 - PROVOKED, due to right tib fracture (3) Ovarian cyst, left: appreciate wave solder offbearer consultation. ca-125 level dispatched. will need very close f/u of this post-d/c to ensure it is not malignant, especially in light of her VTE. 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 had COVID in 08/2020, then the infarction in September. (6) Hypothyroidism: TSH wnl in 02/2020 cont synthroid (7) Impaired fasting glucose: resolved a1c 5.6% (8) Hx of hepatitis C: Treated in the past w/ clearance. No evidence of cirrhosis on exam or by way of radiological imaging. (9) GERD with stricture: PPI (10) Hyperlipidemia: Statin updated at bedside change from OBS to full admit status Admission and Anticipated Discharge Date Admission Date: January 01, 2021 Subjective patient states that LUQ abd pain and left lower chest pain are much improved - essentially resolved. recounts that she had COVID in 08/2020, then in September 2020 she was discovered to have omental infarction. then underwent lap anibal sometime later. denies recent travel or prolonged immobility. denies surgery in the last few weeks. has felt well of late - no B symptoms such as fevers/chills/weight loss/anorexia. does have nightsweats but these are chronic x 2 years. NO FAMILY HISTORY of VTE on maternal or paternal side. had a PROVOKED DVT in the RLE - Rx with xarelto - following a tibia fracture in the right leg. reports chronic pain in the right leg ever since her fracture. right thigh has been bothering her of late. left leg - no pain/discomfort. Review of Systems Constitutional: + sweats (chronic ); no fever, no chills, no fatigue, no weakness and no anorexia Respiratory: no cough, no dyspnea and no dyspnea on exertion Cardiovascular: as per Subjective / HPI; no edema Gastrointestinal: no nausea and no vomiting Physical Exam Constitutional: well developed and well nourished; no acute distress and no altered mental status ENMT: external ear and nose normal, oropharynx normal Respiratory: normal respiratory effort, lungs clear to auscultation Cardiovascular: Rate/Rhythm: regular rate and regular rhythm Heart Sounds: normal S1 and normal S2; no murmur Vessels: posterior tibial pulses present and dorsalis pedis pulses present; no JVD Extremities: no edema Gastrointestinal (Abdomen): normal bowel sounds, soft, nontender, no hepatosplenomegaly Musculoskeletal: right thigh mildly larger than left thigh but no edema or palpable cords Psychiatric: A+Ox3, euthymic affect Results & Data Results & Data ([facility]) Vital Signs (Past 12 Hours) Vital Signs Temp Pulse Pulse Resp BP Pulse Ox 01/02/21 15:09 36.7 C 64 17 135/69 96 01/02/21 10:57 36.9 C 57 L 17 131/77 93 01/02/21 08:00 61 01/02/21 07:53 37.0 C 68 19 148/91 H 97 01/02/21 04:00 36.7 C 61 16 150/70 H 95 BMP wnl troponins negative CT chest/abd/pelvis reviewed - left PVT, left 6cm ovarian cyst PG Care Time/CCT Total # of Minutes Spent Total Time Spent with Patient: Total time spent is greater than 50% in coordination of care (as documented) at patient's floor/unit and/or counseling patient: Coding Level of Care Code 47617 Subseq Hosp Care Lvl 3 Diagnoses Portal vein thrombosis I81 Hx of deep venous thrombosis Z86.718 Ovarian cyst, left N83.202 History of COVID-19 Z86.16 Omental infarction K55.069 Hypothyroidism E03.9 Hypothyroidism type: acquired Impaired fasting glucose R73.01 Hx of hepatitis C Z86.19 GERD with stricture K21.9; K22.2 Hyperlipidemia E78.00; E78.0 Hyperlipidemia type: pure hypercholesterolemia (1) Hypothyroidism Hypothyroidism type: acquired Qualified Code(s): E03.9 - Hypothyroidism, unspecified (2) Hyperlipidemia Hyperlipidemia type: pure hypercholesterolemia Qualified Code(s): E78.00 - Pure hypercholesterolemia, unspecified; E78.0 - Pure hypercholesterolemia
--- NOTE | 2021-01-02 18:13 | Ultrasound Report ---
BILATERAL LOWER EXTREMITY VENOUS DOPPLER CLINICAL HISTORY: h/o RLE DVT; R thigh swelling; eval DVT COMPARISON STUDY: Right lower extremity venous Doppler ultrasound June 06, 2020. TECHNIQUE: Sonography of the deep venous system of the bilateral lower extremities was performed. Co mpression and augmentation were evaluated. FINDINGS: The bilateral common femoral, superficial femoral and popliteal veins were compressible. A ugmentation was normal. Flow was shown within the deep calf vessels. IMPRESSION: No evidence of deep venous thrombus within the bilateral lower extremities. ACT 112: Negative or not required by law. Electronically signed by: Brian Barton M.D. 01/02/2021 6:11 PM
[2021-01-02] MEDS: ENOXAPARIN 100 MG/1ML SYR SQ SCH (18:17)
[2021-01-02] MEDS: ASPIRIN 81 MG ECTAB PO SCH (20:15)
[2021-01-02] MEDS: ADVANCED PROBIOTIC 1250 MG CAPSULE PO SCH (20:15)
[2021-01-02] MEDS: ATORVASTATIN 20 MG TAB PO SCH (20:16)
[2021-01-03 06:09] LABS: INR 1.1 (0.9-1.1); Prothrombin Time 10.8 Seconds (9.0-12.0)
[2021-01-03 06:28] LABS: BUN Creatinine Ratio 9.8 (10-20); Calcium 8.3 mg/dl (8.5-10.1); Creatinine Clr Calc Pharmacy 73.1 ml/min; Est GFR (African American) 79.3 ml/min; Est GFR (Non-African American) 68.4 ml/min; Potassium 3.5 mmol/L (3.5-5.1)
[2021-01-03] MEDS: ENOXAPARIN 100 MG/1ML SYR SQ SCH (06:33)
[2021-01-03] MEDS: LEVOTHYROXINE SODIUM 75 MCG TABLET PO SCH (06:33)
[2021-01-03] MEDS: PANTOprazole 40 MG TAB PO SCH (08:09)
[2021-01-03] MEDS: SERTRALINE HCL 50 MG TABLET PO SCH (08:10)
[2021-01-03] MEDS: TELMISARTAN 40 MG TAB PO SCH (08:11)
[2021-01-03] MEDS: CHOLESTYRAMINE LIGHT 4 GM PKT PO SCH (11:10)
[2021-01-03] MEDS ORDERED: busPIRone 5 MG TAB PO SCH (13:10)
--- NOTE | 2021-01-03 15:21 | Electrocardiogram Report ---
Test Reason : Blood Pressure : / mmHG Vent. Rate : 062 BPM Atrial Rate : 062 BPM P-R Int : 126 ms QRS Dur : 102 ms QT Int : 434 ms P-R-T Axes : 005 024 043 degrees QTc Int : 440 ms Normal sinus rhythm Possible Lateral infarct , age undetermined Abnormal ECG When compared with ECG of 02-JAN-2021 08:40, No significant change was found Confirmed by Filippo Wilkes ([id number]) on 01/03/2021 3:21:23 PM Referred By: REFERRED SELF Confirmed By:Filippo Wilkes
--- NOTE | 2021-01-03 15:32 | Electrocardiogram Report ---
Test Reason : Blood Pressure : / mmHG Vent. Rate : 061 BPM Atrial Rate : 061 BPM P-R Int : 152 ms QRS Dur : 102 ms QT Int : 466 ms P-R-T Axes : 047 011 048 degrees QTc Int : 469 ms Normal sinus rhythm Normal ECG When compared with ECG of 02-JAN-2021 23:32, (unconfirmed) No significant change was found Confirmed by Filippo Wilkes ([id number]) on 01/03/2021 3:31:36 PM Referred By: REFERRED SELF Confirmed By:Filippo Wilkes
[2021-01-03] MEDS ORDERED: WARFARIN SOD 10 MG TAB PO SCH (16:00)
--- NOTE | 2021-01-03 16:02 | Discharge Summary ---
Date of Service date of admission - January 01, 2021 date of discharge - January 03, 2021 Admission HPI Per Admitting Provider This patient is a 70-year-old female with history of HTN, hyperlipidemia, DVT provoked by right tibial plateau fracture, HCV, hypothyroidism, irritable bowel syndrome, impaired fasting glucose, migraines, GERD and Schatzki's ring, depression with anxiety, and chronic diarrhea related to cholecystectomy, who presents to the ER with 1 to 2 weeks of left-sided chest pain coming and going, not necessarily related to exertion. It had been very mild in nature until this morning after having her coffee, she had severe sharp stabbing left-sided chest pain that was associated with nausea and significant diaphoresis. She has never had anything like this before. EMS gave her aspirin nitroglycerin which caused her pain to go away. In the ER, her troponin was negative, however her ECG showed some nonspecific T wave flattening in inferior leads and some T wave inversions in V2 and V3 and V4. This was changed from previous. She does report a history of DVT in the right lower extremity after tibial plateau fracture about 4 years ago and took Xarelto for several months afterwards followed by daily aspirin to the present day. She has not noticed any lower extremity swelling. She did have a coughing spell earlier today that caused her to have some epigastric and left upper quadrant pain as well. In the ER, chest x-ray showed possible lucency under the diaphragm and could not exclude pneumoperitoneum, but x-ray was otherwise normal. CT angiogram of the chest and CT of the abdomen/pelvis with IV contrast were ordered at the time of admission and pending. She will be brought in to rule out acute coronary syndrome or unstable angina as well as to exclude PE and work-up for possible pneumoperitoneum as above. Principal Diagnosis 1. Portal Vein Thrombosis (PVT) 2. Left-sided Ovarian Cyst Discharge Exam Constitutional well developed and well nourished; no acute distress and no altered mental status ENMT external ear and nose normal, oropharynx normal Respiratory normal respiratory effort, lungs clear to auscultation Cardiovascular Rate/Rhythm: regular rate and regular rhythm Heart Sounds: normal S1 and normal S2; no murmur Vessels: posterior tibial pulses present and dorsalis pedis pulses present; no JVD Extremities: no edema Gastrointestinal (Abdomen) normal bowel sounds, soft, nontender, no hepatosplenomegaly Musculoskeletal right thigh mildly increased in size vs the left thigh (chronic per patient) Psychiatric A+Ox3, euthymic affect Discharge Data Allergies Allergy/AdvReac Type Severity Reaction Status Date / Time hydrocodone Allergy Mild Rash Verified 12/27/20 14:09 nickel Allergy Mild RASH Verified 12/27/20 14:09 paroxetine [From Paxil] AdvReac Intermediate sleepiness Verified 12/27/20 14:09 acetaminophen [From Vicodin] AdvReac Mild Gastrointestinal Verified 12/27/20 14:09 Upset Antihistamines - Alkylamine AdvReac Mild Jitters Verified 12/27/20 14:09 azithromycin [From Zithromax] AdvReac Mild Gastrointestinal Verified 12/27/20 14:09 Upset citalopram [From Celexa] AdvReac Mild Gastrointestinal Verified 12/27/20 14:09 Upset Consultations [facility] Ordered Studies Chest X-Ray 01/01/21 10:54 XR chest 1V portable CLINICAL HISTORY: Chest Pain COMPARISON STUDY: Chest CT September 04, 2020. FINDINGS: Lung volumes are normal. Lungs are clear. There is no pneumothorax or pleural effusion. Cardiac size is normal. Mediastinal contours are normal. There is no evidence for pulmonary edema. Note is made of a lucency projecting over the lower mediastinum and upper abdomen. IMPRESSION: 1. Unusual lucency projecting over the lower mediastinum and upper abdomen. This probably reflects intraluminal gas however pneumoperitoneum would be difficult to exclude. If abdominal pain, a CT is recommended. 2. No acute cardiopulmonary findings. ACT 112: Negative or not required by law. Electronically signed by: Brian Barton M.D. 01/01/2021 11:08 AM Abdomen/Pelvis CT 01/01/21 12:[address] WITH IV CONTRAST CT DOSE: HISTORY: Abnormal chest x-ray. ? Pneumoperitoneum TECHNIQUE: Multiaxial CT images of the abdomen and pelvis were performed following the use of intravenous contrast. A dose lowering technique was utilized adhering to the principles of ALARA. COMPARISON STUDY: Chest x-ray 01/01/2021. Chest CT 09/04/2020. FINDINGS: Please refer the same day chest CT for further evaluation of the lung bases. There is no pneumoperitoneum. No pneumatosis. No suspicious lytic or blastic osseous lesions. There are fused scattered hypodense lesions within the liver with the largest in the right hepatic lobe measuring 1.9 cm. These likely represent cysts. Prior cholecystectomy. Nonenhanced left portal vein consistent with thrombus. The main and right portal veins are patent. The pancreas, spleen, adrenal glands, and kidneys are unremarkable. No hydronephrosis. Thickening at the gastroesophageal junction consistent with prior Dayanara fundoplication. This remains unchanged. Normal caliber abdominal aorta. No retroperitoneal lymphadenopathy. Normal bladder. The uterus is surgically absent. There is a 6.2 cm left ovarian cyst. This could be pathologic in a postmenopausal female. Colonic diverticulosis. No evidence for acute diverticulitis. No evidence for bowel obstruction. Normal appendix. A focus of fat necrosis noted within the left upper quadrant, unchanged. IMPRESSION: 1. Left portal vein thrombosis. This is age indeterminate but favors acute thrombus. The main and right portal veins are patent. 2. No acute bowel wall thickening or obstruction. 3. Postoperative changes consistent with prior Dayanara fundoplication. 4. Colonic diverticulosis. No evidence for acute diverticulitis. 5. A 6.2 cm left ovarian cyst. This could be pathologic in a postmenopausal female. Follow-up nonemergent gynecologic consultation recommended. ACT 112: Positive. There are findings on this exam that require communication between the performing entity and the patient following Patient Test Result Information Act ([place] Act 112) guidelines. Electronically signed by: Afshin Hummel M.D. 01/01/2021 2:11 PM Chest CTA 01/01/21 12:44 CT ANGIOGRAPHY OF THE CHEST, PULMONARY EMBOLUS PROTOCOL CLINICAL HISTORY: Shortness of breath. COMPARISON STUDY: Chest CT September 04, 2020. Chest radiograph performed earlier today. TECHNIQUE: Following IV administration of 120 mL of Optiray, helical axial images of the chest were obtained utilizing the pulmonary embolus protocol. Maximal intensity projections and sagittal and coronal reformats were viewed on an independent 3D workstation. IV contrast was administered without complication. Automated exposure control was utilized for the study. A dose lowering technique was utilized adhering to the principles of ALARA. CT DOSE: 1348.19 mGy.cm FINDINGS: No pulmonary emboli are identified. There is no thoracic aortic dissection. Mild cardiomegaly is noted. There is no pericardial effusion. No enlarged thoracic lymph nodes are present. The central airways are patent. No pneumothorax or pleural effusion is present. There is no consolidation to suggest pneumonia. Mild subpleural opacities reflect atelectasis. The abdomen and pelvis will be reported separately. 2.9 cm focus of fat necrosis within the left upper quadrant is similar to prior CT. There are multiple suspected hepatic cysts. IMPRESSION: 1. No pulmonary emboli identified. 2. No acute process within the chest. ACT 112: Negative or not required by law. Electronically signed by: Brian Barton M.D. 01/01/2021 1:41 PM Pelvis Ultrasound 01/01/21 15:02 ULTRASOUND OF THE PELVIS CLINICAL HISTORY: Follow-up left ovarian cyst. COMPARISON STUDY: Pelvic CT dated 01/01/2021. TECHNIQUE: Real-time, grayscale, and color flow sonography of the pelvis is performed both transabdominally and endovaginally. Images are reviewed in the transverse and longitudinal planes. The endovaginal examination is performed for better assessment of the ovaries and adnexa. FINDINGS: Uterus: The uterus is surgically absent Ovaries: The ovaries are normal in size and morphology. The right ovary measures 1.8 x 1.6 x 1.5 cm and the left ovary measures 5.9 x 4.4 x 4.9 cm. There is a 5.2 cm minimally complex cyst identified in the left ovary. This contains minimal internal debris. Nodular/soft tissue component is identified. There are no thick internal septations. A 0.9 cm cystic focus is noted in the right ovary. Normal Doppler waveforms are shown within both ovaries. Pelvis: There is no free fluid in the cul-de-sac. No concerning adnexal lesion is seen. IMPRESSION: 1. Status post hysterectomy. 2. There is a 5.9 cm minimally complex cyst noted in the left ovary, which is an abnormal finding in a postmenopausal patient. No soft tissue/nodular component is identified. Nonemergent/outpatient follow-up with gynecology is recommended, with a precautionary follow-up ultrasound in 6 months time for reassessment. ACT 112: Positive. There are findings on this exam that require communication between the performing entity and the patient following Patient Test Result Information Act ([place] Act 112) guidelines. Electronically signed by: Jayson Nj M.D. 01/01/2021 7:16 PM Transvaginal US 01/01/21 15:03 ULTRASOUND OF THE PELVIS CLINICAL HISTORY: Follow-up left ovarian cyst. COMPARISON STUDY: Pelvic CT dated 01/01/2021. TECHNIQUE: Real-time, grayscale, and color flow sonography of the pelvis is performed both transabdominally and endovaginally. Images are reviewed in the t ransverse and longitudinal planes. The endovaginal examination is performed for better assessment of the ovaries and adnexa. FINDINGS: Uterus: The uterus is surgically absent Ovaries: The ovaries are normal in size and morphology. The right ovary measures 1.8 x 1.6 x 1.5 cm and the left ovary measures 5.9 x 4.4 x 4.9 cm. There is a 5.2 cm minimally complex cyst identified in the left ovary. This contains minimal internal debris. Nodular/soft tissue component is identified. There are no thick internal septations. A 0.9 cm cystic focus is noted in the right ovary. Normal Doppler waveforms are shown within both ovaries. Pelvis: There is no free fluid in the cul-de-sac. No concerning adnexal lesion is seen. IMPRESSION: 1. Status post hysterectomy. 2. There is a 5.9 cm minimally complex cyst noted in the left ovary, which is an abnormal finding in a postmenopausal patient. No soft tissue/nodular component is identified. Nonemergent/outpatient follow-up with gynecology is recommended, with a precautionary follow-up ultrasound in 6 months time for reassessment. ACT 112: Positive. There are findings on this exam that require communication between the performing entity and the patient following Patient Test Result Information Act ([place] Act 112) guidelines. Electronically signed by: Jayson Nj M.D. 01/01/2021 7:16 PM Venous Doppler Study 01/02/21 15:25 BILATERAL LOWER EXTREMITY VENOUS DOPPLER CLINICAL HISTORY: h/o RLE DVT; R thigh swelling; eval DVT COMPARISON STUDY: Right lower extremity venous Doppler ultrasound June 06, 2020. TECHNIQUE: Sonography of the deep venous system of the bilateral lower extremities was performed. Compression and augmentation were evaluated. FINDINGS: The bilateral common femoral, superficial femoral and popliteal veins were compressible. Augmentation was normal. Flow was shown within the deep calf vessels. IMPRESSION: No evidence of deep venous thrombus within the bilateral lower extremities. ACT 112: Negative or not required by law. Electronically signed by: Brian Barton M.D. 01/02/2021 6:11 PM Hospital Course (1) Portal vein thrombosis: Etiology uncertain. No evidence of cirrhosis which is typically the most common cause of PVT. No personal/family history of hypercoagulable state. Does have ovarian cyst on CT and this will need to be followed to ensure it is not early ovarian cancer. Could she have smoldering hypercoagulable state from her COVID in August 2020? Hereditary or acquired hypercoagulable factor? PNH? Related in some fashion to her omental infarction which was in the LUQ in September 2020? Checked prothrombin gene, factor 5 Leiden mutation, and antiphospholipid antibody panel. Other tests (protein C, protein S, etc) not accurate in the setting of acute thrombus - thus, these tests were deferred. Initially was on systemic heparin infusion, then changed to lovenox 100mg SC BID. She received lovenox teaching prior to discharge. Initiated on coumadin. Received 10mg on 01/02 and 10mg on 01/03. Plan is for lovenox/coumadin at discharge, and daily INRs for several days post discharge until INR is 2-3 and she is on a stable dose of coumadin. Will need 2 days of "overlap" therapy with lovenox while awaiting coumadin to take effect. Given that the etiology of her PVT is unclear recommend the following - 1. follow-up on genetic testing 2. screening for PNH 3. [facility] follow-up for the left-sided ovarian cyst 4. additional tests / work-up for occult cancer if #3 is benign 5. consideration of other hereditary/acquired hypercoagulable states Will need 6 months minimum of treatment. (2) Chest pain: 2nd to acute PVT. Her pain was largely in the LUQ which was the site of the thrombus. Troponins were negative. Echo showed EF 60-65%, normal LV wall motion, normal RV function, no significant valvular dysfunction; mild pulmonary HTN. Telemetry was normal while hospitalized. (3) Ovarian cyst, left: Seen by [facility]. CA-125 level dispatched. Will need very close f/u of this post-discharge to ensure it is not malignant, especially in light of her PVT. (4) Hx of deep venous thrombosis: RLE - 2017 - PROVOKED, due to right tibia fracture. Venous dopplers this admission were negative for DVT. CTA chest negative for PE. (5) History of COVID-19: mild case by her history. 08/2020. (6) Omental infarction: dx 09/2020. 2nd to hypercoagulable state from COVID?? had COVID in 08/2020, then the infarction subsequently in September. (7) Hypothyroidism: TSH wnl in 02/2020 cont synthroid (8) Impaired fasting glucose: resolved - most current Hba1c 5.6%. (9) Hx of hepatitis C: Treated in the past w/ documented viral clearance. No evidence of cirrhosis on exam or by way of radiological imaging. (10) GERD with stricture: s/p dilatation in the past for her stricture. (11) Hyperlipidemia: Statin (12) Anxiety: Recently started on zoloft for such. Has used ativan prn for years and she reports it has lost its effectiveness (presumably due to tolerance). Trial of scheduled buspar 5mg BID until her zoloft has taken effect. (13) Abnormal flushing and sweating: Patient reports severe episodes of sweating, which gives her anxiety, and she subsequently feels "terrible." She denies dyspnea or chest pain with these spells. I am uncertain to the etiology of such. Recommended f/u with her PCP for such. All troponins during her stay were negative. Total Time Total Time Spent Total Time Spent (In Minutes): 50 Total Time Includes: Examination of the Patient, Discharge Planning, Medication Reconciliation and Communication With Other Providers Discharge Plan Discharge Items Patient Disposition: Home - Self-Care Reason For Visit: CHEST PAIN/UPPER ABDOMINAL PAIN Discharge Diagnosis: Chest pain/abdominal pain due to "PVT" (Portal vein thrombosis) Activity: As commented below Activity Comment: take it easy for a few days then increase activities thereafter Non-emergency contact: Primary Care Provider Call non-emergency contact if: you have any medication questions, your symptoms worsen, your pain is not controlled, your pain is worsening and you have a fever Follow-up/Referrals: Steven Monroe MD [Primary Care Provider] - (Ideally Wednesday or Wednesday next week w/ Dr Monroe at the [place] office. ) Mabel Diehl MD, FACOG [Physician] - (1-2 weeks - follow-up for ovarian cyst) Diet: Regular Addtl Attending Provider Instructions: Ms Rushing, Patrice were admitted to the hospital after we found a blood clot in your abdomen called "PVT" (portal vein thrombosis). This was the cause of your presenting upper abdominal and lower chest pain. You had no evidence of blood clots in the lungs, blood clots in the legs, or a heart attack. The exact cause of your PVT is uncertain. The most common cause of PVT is having cirrhosis of the liver. However, you do not have cirrhosis. We sent blood tests looking for hereditary causes of blood clotting. These labs take about 1 week to return. There are other causes of PVT and we will attempt to find the cause as time goes on. It will be very important to have follow-up for the ovarian cyst with collaborating supervising physician. We have started you on lovenox and coumadin (warfarin). The lovenox shots are TEMPORARY, perhaps for about 1 week. You will take the coumadin for about 6 months. Recommendations - 1. lovenox shots -- 100mg twice daily, about 8am and 8pm each day. Rotate sites in your abdomen. Stay on the shots until Dr Monroe tells you it is ok to stop. You will need to take your first shot TONIGHT about 8pm. 2. You received coumadin 10mg on 01/02 and 10mg again on 01/03. Do not take additional coumadin today upon return home. KNow that coumadin interacts with MANY THINGS including alcohol, antibiotics, other medications, certain foods, etc. It is best NOT to drink alcohol while on coumadin. See handout. 3. Please come to the [facility] on Wednesday am, 01/04 and Wednesday am, 01/05 (about 9-10am). You will need your INR blood thinner number checked each time. When the lab test results are back we will call you with instructions on how much coumadin to take this weekend. After getting the blood draw you don't have to wait - we will call you with results. On Wednesday, 01/06 please go to the [place] office for your INR check. INR checks thereafter will be managed by Dr Monroe and his team. Be sure to bring the lab slips with you each time to the lab. 4. For anxiety - take buspar (buspirone) 5mg twice daily (either scheduled or as needed). Try to avoid taking the lorazepam if you take the buspar. Follow-up - see separate section Return to [facility] if - * you have recurrent chest pains * you have any concerns of bleeding from any location * you have recurrent, severe abdominal pain * any other concerns Stay well and enjoy the weekend! Dr Esmer Castellanostl Roulette Dealer Provider Instructions: Blood thinner instructions: * Warfarin is a medicine prescribed to prevent blood clots * Warfarin will thin your blood and help prevent new clots * Take your medications exactly as directed * Never skip a dose. Never take a double dose. If you miss a dose, take it as soon as you remember * It is important for your doctor to monitor your INR. This is a lab test. It tells you the thickness or thinness of your blood * Keep your appointment for lab tests Risk of Adverse Drug Reactions and Interactions: * Warfarin increases your risk of bleeding * The food you eat and other medications you take can affect how Warfarin works in your body * Ask your doctor about daily aspirin therapy * It is very important to talk with your doctor about all of the other medicines, antibiotics, vitamins or herbal products that you are taking * All of your medication must be approved by your doctor, including new medicines, as well as medicines you have taken before you started taking Warfarin Diet: * In order for Warfarin to work properly, it is important to keep your intake of Vitamin K as consistent as possible * You should avoid any sudden change in Vitamin K intake * Report any significant changes in your diet or weight to your doctor Call your Primary Care doctor if you experience any of the following: * Swelling or Pain in your leg * Sudden, continuous pain deep in a muscle * Pain that worsens when you are active or when you stand still for a long time * Chest Pain * Sudden Shortness of Breath * Rapid or pounding heart beat * Fainting * Dizziness * Cough with blood or bloody sputum * Sweating more than normal * Bruises * Heavy or uncontrolled bleeding * Blood in your urine, stool or vomit * Black or tarry stools * Heavy nose bleeding Caring for Your Self at Home: * Avoid sitting, standing or lying down for long periods without moving your legs and feet * When traveling by car, stop to get out and move around at least once every 3 hours * On long airplane, train or bus rides, get up and move around when possible * If you can't get up, wiggle your toes and tighten your calves to keep your blood moving Follow Up: It is important for you to keep your follow up appointments with your medical provider. Pending Studies at Discharge: Yes Studies:: Prothrombin Gene Mutation; Factor 5 Leiden Mutation; Antiphospholipid Antibodies Stand-Alone Forms: [facility], Smoking Cessation Medications and DC Order Prescriptions: New buspirone 5 mg Tablet 5 mg PO BID Qty: 30 RF: 0 enoxaparin [Lovenox] 100 mg/mL syringe 100 mg subcut Q12H 10 Days Qty: 20 RF: 0 warfarin 5 mg tablet 5 mg PO .Daily as directed Qty: 30 RF: 1 Continued ondansetron HCl [Zofran] 4 mg tablet 4 mg PO Q8H PRN (Reason: nausea and vomiting) Qty: 30 RF: 0 levothyroxine 75 mcg tablet 75 mcg PO QAM Qty: 90 RF: 3 cholestyramine (with sugar) 4 gram powder 4 g PO DAILY Qty: 378 RF: 2 sertraline 50 mg tablet 50 mg PO DAILY Qty: 30 RF: 2 lorazepam 0.5 mg tablet 0.5 mg PO Q6H PRN (Reason: anxiety/vertigo) Qty: 60 RF: 1 omega-3 fatty acids Capsule 1,000 mg PO QPM RF: 0 Citracal Plus Bone Density 300-200-13.5 mg-unit-mg Tablet 1 tab PO QPM RF: 0 Probichew 21 billion cell - 1 gram Tablet,Chewable 1 tab PO QPM RF: 0 atorvastatin 20 mg tablet 20 mg PO QPM RF: 0 telmisartan 40 mg tablet 40 mg PO QAM RF: 0 cholecalciferol (vitamin D3) 50 mcg (2,000 unit) capsule 4,000 unit PO QPM RF: 0 Discontinued aspirin 81 mg tablet,delayed release (DR/EC) 81 mg PO QPM RF: 0 Discharge Orders: Discharge Order (Routine); Ordered 01/03/21 Ordered By: Mckay Velez/Other Patient Handouts: What to Know When TakingWarfarin Admission Data Admit Date/Time: 01/02/21 15:25 Attending Provider: Mckay Lyman Admit Provider: Sadaf Croft Primary Care Provider: Steven Monroe Other Providers: Sadaf Croft ; Mabel Diehl Other Interventions: Discharge Summary Assessment (RN) Last Done: 01/03/21 16:13 Coding Level of Care Code D/C Day Management >30 mins Diagnoses Portal vein thrombosis I81 Chest pain R07.9 Ovarian cyst, left N83.202 Hx of deep venous thrombosis Z86.718 History of COVID-19 Z86.16 Omental infarction K55.069 Hypothyroidism E03.9 Hypothyroidism type: acquired Impaired fasting glucose R73.01 Hx of hepatitis C Z86.19 GERD with stricture K21.9; K22.2 Hyperlipidemia E78.00; E78.0 Hyperlipidemia type: pure hypercholesterolemia Anxiety F41.9 Abnormal flushing and sweating R23.2; R61
[2021-01-07 16:11] LABS: B2 Glycoprotein IgA <2.0 U/mL (<20.0); B2 Glycoprotein IgG <2.0 U/mL (<20.0); B2 Glycoprotein IgM <2.0 U/mL (<20.0); Phosphatidylserine IgG <10 U/mL (<10); Phosphatidylserine IgM <25 U/mL (<25)
[2021-01-10] MEDS ORDERED: SERTRALINE HCL 50 MG TABLET PO SCH (09:00)
== END 2021-01-03 17:03 | disposition home or self-care (01) ==
LOC: 2E 10:41 → ED 10:41 → SUATTDRO 12:59 → 2E 13:45
DX: N83.202 Unspecified ovarian cyst, left side; E66.9 Obesity, unspecified; Z88.8 Allergy status to other drugs, medicaments and biological substances; K21.9 Gastro-esophageal reflux disease without esophagitis; R61 Generalized hyperhidrosis; Z68.31 Body mass index [BMI] 31.0-31.9, adult; Z82.49 Family history of ischemic heart disease and other diseases of the circulatory system; I81 Portal vein thrombosis; Z86.19 Personal history of other infectious and parasitic diseases; Z86.16 Personal history of COVID-19; K57.30 Diverticulosis of large intestine without perforation or abscess without bleeding; R07.9 Chest pain, unspecified; Z86.718 Personal history of other venous thrombosis and embolism; R73.01 Impaired fasting glucose; I10 Essential (primary) hypertension; Z88.6 Allergy status to analgesic agent; Z88.5 Allergy status to narcotic agent; R23.2 Flushing; E03.9 Hypothyroidism, unspecified; K58.9 Irritable bowel syndrome, unspecified; E78.5 Hyperlipidemia, unspecified; Z79.82 Long term (current) use of aspirin; M81.0 Age-related osteoporosis without current pathological fracture; Z79.899 Other long term (current) drug therapy; Z87.891 Personal history of nicotine dependence; Z20.822 Contact with and (suspected) exposure to COVID-19